=== PATIENT | male | born 1975 | race African-American/Black ===

== ENCOUNTER 2025-04-21 08:11 | Observation (INO) | payer OTHER, MEDICAID, SELFPAY ==
[2025-04-21] VITALS (9 sets, daily range): BP systolic 92–122; BP diastolic 62–95; PULSE 103–115; RESP 16–29; TEMP 36.7; O2SAT 97–98; BMI 29.7
--- NOTE | ~2025-04-21 | XR_ITS ---
XR hip RT min 2V 04/23/2025 14:44 Indication: Right hip pain Procedure: 2 views right hip Comparison: No prior studies for comparison. Findings: Mild osteoarthritis of the right hip. No fracture, subluxation or dislocation. No significant soft tissue abnormality. No foreign bodies. Impression: 1: Mild osteoarthritis of the right hip. Reviewed, dictated and finalized at location O. ARGE SUPERVISOR Impression: 1: Mild osteoarthritis of the right hip.
--- NOTE | ~2025-04-21 | CT_ITS ---
CT abdomen pelvis w con Clinical History: RUQ abd pain, PMH OF CIRRHOSIS . Comparison: None Technique: Axial images lung bases to symphysis pubis IV contrast information not listed in PACS Coronal, sagittal reformats CT images acquired with automatic exposure control for dose reduction DLP: 820 mGy-cm Findings: Lung bases: Clear. Visualized heart and pericardium: Unremarkable. Liver: Enlarged. Steatosis. Gallbladder: Unremarkable. Spleen: Unremarkable. Pancreas: Unremarkable. Adrenal glands: Unremarkable. Kidneys: Right kidney- No hydronephrosis. No renal stones. Subtle cortical heterogeneous enhancement. Perinephric stranding. Left kidney- No hydronephrosis. No renal stones. Distal esophagus/stomach: Unremarkable. Small bowel loops: Normal caliber and wall thickness. Colon: A few diverticula. Normal caliber and wall thickness. Normal RLQ appendix. Nodes: No enlarged nodes. Peritoneum: No ascites. No free air. Urinary bladder: Unremarkable. Prostate: Unremarkable. Bones: No acute bony abnormality. Soft tissues: Unremarkable. Aorta: No aneurysm or dissection. IVC: Unremarkable. Main portal vein/SMV/splenic vein: Patent. IMPRESSION: 1. Right kidney recently passed stone and/or pyelonephritis. Reviewed, dictated and finalized at location R. [employer] ASSEM[employer] INSPECTOR
--- OUTSIDE RECORDS SUMMARY | 2025-04-21 10:09 | XMS_ITS | Clinical Summary ---
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 Name Role Phone Referral, Self Primary Care Provider Unavailabl e Allergies No known active allergies Medications albuterol HFA (PROVENTIL HFA,VENTOLIN HFA,PROAIR HFA) 90 mcg/actuation inhaler Inhale 2 puffs every 6 (six) hours as needed for wheezing 1 each 3 5 Active allopurinoL (ZYLOPRIM) 100 mg tablet Take 1 tablet (100 mg total) by mouth daily 30 tablet 5 5 Active bictegravir-emt ricitabine-teno fovir (Biktarvy) 50-200-25 mg tablet Take 1 tablet by mouth daily 30 tablet 2 5 Active cetirizine (ZyrTEC) 10 mg tablet Take 1 tablet (10 mg total) by mouth daily 30 tablet 5 5 Active gabapentin (NEURONTIN) 100 mg capsule Take 1 capsule (100 mg total) by mouth 2 (two) times a day 60 capsule 5 5 Active atorvastatin (LIPITOR) 20 mg tablet Take 1 tablet (20 mg total) by mouth daily 30 tablet 2 5 Active ketorolac (TORADOL) 10 mg tablet Take 1 tablet (10 mg total) by mouth every 6 (six) hours as needed for pain 20 tablet 5 Active cyclobenzaprine (FLEXERIL) 10 mg tablet Take 1 tablet (10 mg total) by mouth 2 (two) times a day as needed for muscle spasms 20 tablet 5 Active meloxicam (MOBIC) 7.5 mg tablet Take 1 tablet (7.5 mg total) by mouth 2 (two) times a day 60 tablet 5 5 04/13/20 25 Discontinu ed(Therapy completed) Active Problems Problem Noted Date Diagnosed Date History of prostatitis 09/24/2024 Assessment & Plan (09/24/2024 2:43 PM CDT): - Reports a milky fluid from penis with bowel movements. No pain with urination or bowel movement. States he previously was diagnosed with prostatitis requiring admission. - No pain or urinary symptoms consistent with acute prostatitis but will do urinalysis w/ reflex to micro and culture for evaluation. If culture negative will discuss referral to urology for evaluation. If positive will discuss treating for UTI vs prostatitis. Numbness of fingers 08/19/2024 Assessment & Plan (08/19/2024 12:18 PM CDT): - Since starting new job, likely due to overuse. - Will evaluate renal function and if normal will rx NSAIDs x 1-2 weeks and reassess for improvement Routine screening for STI (sexually transmitted infection) 08/19/2024 Assessment & Plan (08/19/2024 12:19 PM CDT): - Reports not being sexually active at this time. Triple screen for GC/chlamydia sent today - He also reports a hx of syphilis, last treated 1 year ago. RPR drawn today. If reactive will need to get previous RPRs to trend Abnormal immunological findi ngs in specimens from other organs, systems and tissues 06/25/2018 Dysplasia of anus 10/28/2013 History of hepatitis C s/p treatment 10/02/2007 Assessment & Plan (09/24/2024 2:41 PM CDT): - HCV RNA negative 08/19/24 - Plan to repeat HCV RNA annually to screen for reinfection Assessment & Plan (08/19/2024 12:18 PM CDT): - Reports treatment in [place]. Release of information sent for records of treatment Human immunodeficiency virus (HIV) infection Overview (08/08/2017): Annotation: 04/2013 genotype: L10V, I13I/V, M36I, L63S Assessment & Plan (09/24/2024 2:43 PM CDT): - Currently on Biktarvy and reports tolerating well with viral load of 25. CD4 871 (40%) - Continue Biktarvy daily - Needs Hep B vaccination. First dose today Assessment & Plan (08/19/2024 12:18 PM CDT): - Currently on Biktarvy and reports tolerating well. No records available but states his viral load has been undetectable for several years - Refill Biktarvy today - New patient labs today - I have requested medical records regarding his other comorbidities and medications Resolved Problems Problem Noted Date Diagnosed Date Resolved Date Chlamydia 03/18/2013 08/19/2024 Syphilis, unspecified 03/18/20132024 Encounters Date Type Department Care Team Description 04/13/2025 8:19 PM SMALL ARMS ARTILLERY REPAIRER - 04/13/2025 9:08 PM SMALL ARMS ARTILLERY REPAIRER Emergency [facility] Emergency Department [id number] [place] [address] Lumbar radiculopathy (Primary Dx) Discharge Disposition: Discharge to home or self care 03/[facility] [address] [place] [address] [phone] Mellisa Rivera RMA 02/18/2025 Documentation [facility] [address] [place] [address] [phone] Bisi Villagran BSW Case Conference 02/18/2025 [facility] [address] [place] [address] [phone] Bisi Villagran BSW 02/12/2025 [facility] [address] [place] [address] [phone] Kylie Weiner RN from Last 3 Months Immunizations Immunization Administration Dates Next Due H1N1 Inj 04/26/2009 Hep A / Hep B 11/20/2018 Hep B Vaccine 12/30/2007,05/21/2006 Heplisav-b (Hepatitis B) 09/23/2024 Influenza, Quadrivalent, Spl it, Intramuscular 04/28/2018 Influenza, Trivalent, IM (MDV) 02/11/2013 Influenza, Trivalent, Preser vative Free, Intramuscular 01/25/2009,03/25/2007 Influenza, Unspecified 02/04/2024 PPD TEST 10/05/2008,09/30/2007,09/19/2006 Pneumococcal Polysaccharide PPV23 02/11/2013, Tdap 02/20/2021 Surgical History Surgery Date Site/Laterality Comments HERNIA REPAIR Medical History Medical History Date Comments Human immunodeficiency virus (HIV) disease (HCC) HIV disease - (Added by AGUSTÍN pererav) Family History Medical History Relation Name Comments Schizophrenia Brother Diabetes Mother Relation Name Status Comments Brother Mother Social History Tobacco Use Types Packs/Day Years Used Date Smoking Tobacco: Every Day Cigarettes 0.6 34 Started: 1991 Tobacco Cessation:Ready to Q uit: Not Asked; Counseling Given: Not Answered Personal Safety Answer Date Recorded Have you ever been in or are you currently in a harmful physical or emotional relationship or is someone making you feel afraid or unsafe? Denies 04/13/2025 Sex and Gender Information Value Date Recorded Sex Assigned at Male 08/19/2024 10:25 AM CDT Legal Sex Male 11:04 PM SMALL ARMS ARTILLERY REPAIRER Gender Identity Male 08/19/2024 10:25 AM CDT Sexual Orientation [place] 08/19/2024 10 :25 AM CDT Last Filed Vital Signs Vital Sign Reading Time Taken Comments Blood Pressure 149/94 04/13/2025 9:05 PM SMALL ARMS ARTILLERY REPAIRER Pulse 94 04/13/2025 9:05 PM SMALL ARMS ARTILLERY REPAIRER Temperature 36.6 C (97.8 F) 04/13/2025 6:32 PM SMALL ARMS ARTILLERY REPAIRER Respiratory Rate 16 04/13/2025 6:32 PM SMALL ARMS ARTILLERY REPAIRER Oxygen Saturation 99% 04/13/2025 9:05 PM SMALL ARMS ARTILLERY REPAIRER Inhaled Oxygen Concentration - - Weight 98.4 kg (217 lb) 04/13/2025 6:32 PM SMALL ARMS ARTILLERY REPAIRER Height 180.3 cm (5' 11) 04/13/2025 6:32 PM SMALL ARMS ARTILLERY REPAIRER Body Mass Index 30.27 04/13/2025 6:32 PM SMALL ARMS ARTILLERY REPAIRER Plan of Treatment Health Maintenance Due Date Last Done Comments Colon Cancer Screening-Colonoscopy 1975 Depression Screening 1975 HLA B 5701 Typing 1975 Prostate Cancer Screening-PSA 1975 G6PD 11/20/1993 Regular Well Visit/Exam 18-64 11/20/1993 Zoster Vaccine (1 of 2) 11/20/1994 Hepatitis A Vaccines (2 of 3 - Hep A Twinrix risk 3-dose series) 12/18/2018 11/20/2018 Influenza Vaccine (#1) 2024 , 04/28/2018, 02/11/2013, Additional history exists Hemoglobin A1C 08/19/2025 08/19/2024 RPR Screening 08/19/2025 08/19/2024 T Spot (quantiferon gold) 08/19/2025 08/19/2024 HIV+ Chlamydia and Gonorrhea Screening (Throat) 08/20/2025 08/20/2024 Hepatitis C Screening 09/23/2025 09/23/2024 , 08/19/2024, 08/19/2024, Additional history exists Proteinuria screening Urinalysis (UA) 09/23/2025 09/23/2024, 09/23/2024, 08/19/2024, Additional history exists HIV + Chlamydia and Gonorrhe a Screening (Urine) 09/24/2025 09/24/2024 HIV+ Chlamydia and Gonorrhea Screening (Rectal) 09/24/2025 09/24/2024 Lipid Panel 04/13/2026 04/13/2025, 08/19/2024 DTaP/Tdap/Td Vaccine (2 - Td or Tdap) 02/20/2031 02/20/2021 Hepatitis B Vaccines Completed 01/19/2025, 09/23/2024, 11/20/2018, Additional history exists Pneumococcal vaccine <65 Completed 025, 02/11/2013, 03/25/2007 Procedures Procedure Name Priority Date/Time Associated Diagnosis Comments XR HIP RIGHT 2 OR 3 VIEWS ED 04/13/2025 6:59 PM SMALL ARMS ARTILLERY REPAIRER XR SPINE LUMBAR 2 OR 3 VIEWS ED 04/13/2025 6:59 PM SMALL ARMS ARTILLERY REPAIRER URINALYSIS AND REFLEX TO MICROSCOPIC AND CULTURE Routine 09/23/2024 11:07 AM CDT HIV infection, unspecified symptom status (HCC) HEMOGLOBIN A1C Routine 08/19/2024 11:27 AM CDT HIV positive (HCC) LIPID PANEL Routine 08/19/2024 11:27 AM CDT HIV positive (HCC) T-SPOT.TB Routine 08/19/2024 11:27 AM CDT HIV positive (HCC) HEPATITIS C RNA, QUANTITATIVE, PCR Routine 08/19/2024 11:21 AM CDT HIV positive (HCC) RPR Routine 08/19/2024 11:21 AM CDT HIV positive (HCC) from Last 3 Months or Most Recently Relevant to Health Maintenance Results * XR Hip Right 2 or 3 Views (04/13/2025 6:59 PM SMALL ARMS ARTILLERY REPAIRER) Anatomical Region Laterality Modality Lower Extremities, Hip, Pelvis Right C omputed Radiography 04/14/2025 6:24 AM SMALL ARMS ARTILLERY REPAIRER Impressions 04/14/2025 6:24 AM SMALL ARMS ARTILLERY REPAIRER 1. Mild lower lumbar facet osteoarthritis 2. Suggestion of right hip gluteal calcific tendinitis Electronically signed by: Hugo Beavers MD, PHD Narrative 04/14/2025 6:24 AM SMALL ARMS ARTILLERY REPAIRER EXAMINATION: Lumbar spine 2 or 3 views; right hip 2 or 3 views HISTORY: Lower back and right hip pain FINDINGS: 3 radiographs the lumbar spine are submitted without comparison. The alignment is normal in neutral position without listhesis. The disc spaces and vertebral body heights appear normal. Mild lower lumbar facet osteoarthritis present. There is no spondylolysis. 2 view examination right hip demonstrates normal alignment and no acute fracture. The right hip joint space is normal. There is heterotopic calcification/ossification at the greater trochanter. Procedure Note Hugo Beavers MD PhD - 04/14/2025 EXAMINATION: Lumbar spine 2 or 3 views; right hip 2 or 3 views HISTORY: Lower back and right hip pain FINDINGS: 3 radiographs the lumbar spine are submitted without comparison. The alignment is normal in neutral position without listhesis. The disc spaces and vertebral body heights appear normal. Mild lower lumbar facet osteoarthritis present. There is no spondylolysis. 2 view examination right hip demonstrates normal alignment and no acute fracture. The right hip joint space is normal. There is heterotopic calcification/ossification at the greater trochanter. IMPRESSION: 1. Mild lower lumbar facet osteoarthritis 2. Suggestion of right hip gluteal calcific tendinitis Electronically signed by: Hugo Beavers MD, PHD us Jony Peterson MD IMG XR PROCEDURES Final Re sult * XR Spine Lumbar 2 or 3 Views (04/13/2025 6:59 PM SMALL ARMS ARTILLERY REPAIRER) Anatomical Region Laterality Modality Spine N/A Computed Radiogr aphy 04/14/2025 6:24 AM SMALL ARMS ARTILLERY REPAIRER Impressions 04/14/2025 6:24 AM SMALL ARMS ARTILLERY REPAIRER 1. Mild lower lumbar facet osteoarthritis 2. Suggestion of right hip gluteal calcific tendinitis Electronically signed by: Hugo Beavers MD, PHD Narrative 04/14/2025 6:24 AM SMALL ARMS ARTILLERY REPAIRER EXAMINATION: Lumbar spine 2 or 3 views; right hip 2 or 3 views HISTORY: Lower back and right hip pain FINDINGS: 3 radiographs the lumbar spine are submitted without comparison. The alignment is normal in neutral position without listhesis. The disc spaces and vertebral body heights appear normal. Mild lower lumbar facet osteoarthritis present. There is no spondylolysis. 2 view examination right hip demonstrates normal alignment and no acute fracture. The right hip joint space is normal. There is heterotopic calcification/ossification at the greater trochanter. Procedure Note Hugo Beavers MD PhD - 04/14/2025 EXAMINATION: Lumbar spine 2 or 3 views; right hip 2 or 3 views HISTORY: Lower back and right hip pain FINDINGS: 3 radiographs the lumbar spine are submitted without comparison. The alignment is normal in neutral position without listhesis. The disc spaces and vertebral body heights appear normal. Mild lower lumbar facet osteoarthritis present. There is no spondylolysis. 2 view examination right hip demonstrates normal alignment and no acute fracture. The right hip joint space is normal. There is heterotopic calcification/ossification at the greater trochanter. IMPRESSION: 1. Mild lower lumbar facet osteoarthritis 2. Suggestion of right hip gluteal calcific tendinitis Electronically signed by: Hugo Beavers MD, PHD Jony Peterson MD IMG XR PROCEDURES Final Re sult * (ABNORMAL) Urinalysis reflex to microscopic and culture Urine (09/23/2024 11:07 AM CDT) Color, ur Straw Yellow Clarity, ur Clear Clear [facility] Specific gravity, ur 1.005 1.003 - 1.030 [facility] pH, urine 6.5 [facility] Comment: Interpretive Data U rine pH is affected by diet, medications, systemic acid-base disturbances, and renal tubular function. pH may affect urinary stone formation. For example, urine pH below 6.0 may help reduce the tendency for calcium phosphate stones and pH greater than 6.0 may reduce the tendency for uric acid stone formation. Source: [facility] [employer] Current Interpretive Data was last revised on 2017 Protein, ur ql Negative Negative [facility] Glucose, ur ql Negative Negative [facility] Ketones, ur Negative Negative [facility] Bilirubin, ur Negative Negative [facility] Blood, ur Negative Negative [facility] Urobilinogen, ur <2.0 <2.0 mg/dL [facility] Nitrite, ur Negative Negative [facility] Leukocyte esterase, ur 3+(A) Negative [facility] UA reflex comment Reflex to microscopic UA will be performed. [facility] Urine 09/23/2024 11:0 7 AM CDT 09/23/2024 2:33 PM CDT Savanna Yi NP LAB MICROBIOLOGY - GENERA L ORDERABLES Final Result [facility] Department [place] [address] * T-SPOT.TB Blood (08/19/2024 11:27 AM CDT) [facility] T-SPOT.TB Negative [facility] Comment: Normal Value: Negative A negative test result does not exclude the possibility of exposure to or infection with Mycobacterium tuberculosis (M. tuberculosis). Patients with recent exposure to TB infected individuals exhibiting a negative T-SPOT.TB result should be considered for retesting within 6 weeks or if other relevant clinical symptoms indicate. Results from T-SPOT.TB testing must be used in conjunction with each individual's epidemiological history, current medical status, and results of other diagnostic evaluations. The T-SPOT.TB test is qualitative and results are reported as positive, borderline or negative, given that the test controls perform as expected. In line with the Centers for Disease Control and Prevention's 2010 recommendation to report quantitative measurements alongside the qualitative result, the laboratory provides spot counts for informational purposes only. The T-SPOT.TB test should not be interpreted as a quantitative test. T-SPOT.TB Panel A Spot Count 0 [facility] T-SPOT.TB Panel B Spot Count 1 [facility] T-SPOT.TB Negative Control Passed [facility] T-SPOT.TB Positive Control Passed [facility] Comment: Test Performed at: [facility] [address] [place] [id number] SHAYY OROZCO,PHD Blood 08/19/2024 11:2 7 AM CDT 08/19/2024 3:28 PM CDT Savanna Yi NP LAB MICROBIOLOGY - GENERA L ORDERABLES Final Result [facility] Department [place] [address] * (ABNORMAL) Hemoglobin A1c (08/19/2024 11:27 AM CDT) [facility] Hgb A1C 6.5(H) 4.0 - 5.6 % Estimated Average Glucose 140 mg/dL [facility] Comment: The ADA recommends reporting an estimated Average Glucose (eAG) with all Hemoglobin A1c results using the equation derived from a study of 507 normal and diabetic adults. Minority populations were underrepresented and children were not included. (Diabetes Care 2020; 43(S1): S69-S76). The eAG is not equivalent to a fasting glucose. Blood 08/19/2024 11:2 7 AM CDT 08/19/2024 2:51 PM CDT us Savanna Yi BLOCKER [employer] LAB BLOOD ORDERABLES Yamilka garcias Result [facility] Department [place] [address] * (ABNORMAL) Lipid panel (08/19/2024 11:27 AM CDT) Cholesterol 147 30 - 199 mg/dL Comment: Interpretive Data Ages < or = 19 years Acceptable: <170 mg/dL Borderline high: 170-199 mg/dL High: >or= 200 mg/dL Ages > or = 20 years Desirable: <200 mg/dL Borderline high: 200-239 mg/dL High: >or= 240 mg/dL Literature References: 1. Expert Panel on Integrated Guidelines for Cardiovascular Health and Risk Reduction in Children and Adolescents. Pediatrics 2011;128:S213 2. NCEP Expert Panel. Circulation 2004;110:227 Current Interpretive Data was last revised on 2017. Triglycerides 194(H) <=149 mg/dL [facility] Comment: Interpretive Data Ages < or = 9 years Acceptable: <75 mg/dL Borderline high: 75-99 mg/dL High: >or= 100 mg/dL Ages 10 to 20 years Acceptable: <90 mg/dL Borderline high: 90-129 mg/dL High: >or= 130 mg/dL Ages > or = 20 years Desirable: <150 mg/dL Borderline high: 150-199 mg/dL High: 200-499 mg/dL Very high: >or= 499 mg/dL Literature References: 1. Expert Panel on Integrated Guidelines for Cardiovascular Health and Risk Reduction in Children and Adolescents. Pediatrics 2011;128:S213 2. NCEP Expert Panel. Circulation 2004;110:227 Current Interpretive Data was last revised on 2017. HDL 43 >=40 mg/dL [facility] Comment: Interpretive Data Ages < or = 19 years Acceptable: >45 mg/dL Borderline low: 40-45 mg/dL Low: <40 mg/dL Ages > or = 20 years Desirable: >or= 60 mg/dL Low: <40 mg/dL Literature References: 1. Expert Panel on Integrated Guidelines for Cardiovascular Health and Risk Reduction in Children and Adolescents. Pediatrics 2011;128:S213 2. NCEP Expert Panel. Circulation 2004;110:227 Current Interpretive Data was last revised on 2017. LDL, calculated 72 <=129 mg/dL [facility] Comment: Interpretive Data Ages < or = 19 years Acceptable: <110 mg/dL Borderline high: 110-129 mg/dL High: >or= 130 mg/dL Ages > or = 20 years Optimal: <100 mg/dL Near optimal: 100-129 mg/dL Borderline high: 130-159 mg/dL High: >160 mg/dL Calculated using the Maurizio LDL-C estimating equation. This equation was implemented on 2023. Prior to this date LDL-C was estimated using the Friedewald equation. Literature References: 1. Expert Panel on Integrated Guidelines for Cardiovascular Health and Risk Reduction in Children and Adolescents. Pediatrics 2011;128:S213 2. NCEP Expert Panel. Circulation 2004;110:227 3. Maurizio Bravo et al. YUAN Cardiol. 2019August 27;5(5):540-548. doi: 10.1001/[email or web address] Current Interpretive Data was last revised on 2023. Non-HDL Cholesterol 104 mg/dL [facility] Comment: Interpretive Data Ages < or = 19 years Acceptable: <120 mg/dL Borderline high: 120-144 mg/dL High: >145 mg/dL Ages > or = 20 years When triglycerides are >200 mg/dL, Non-HDL cholesterol is a secondary target of therapy with treatment goals that are 30 mg/dL greater than the LDL cholesterol target. Literature References: 1. Expert Panel on Integrated Guidelines for Cardiovascular Health and Risk Reduction in Children and Adolescents. Pediatrics 2011;128:S213 2. NCEP Expert Panel. Circulation 2004;110:227 Current Interpretive Data was last revised on 2017. Chol/HDL ratio 3 [facility] Blood 08/19/2024 11:2 7 AM CDT 08/19/2024 2:51 PM CDT Savanna Yi BLOCK[employer] LAB BLOOD ORDERABLES Yamilka l Result Performing Organization Address City/[facility]/ZIP Co de Phone Number [facility] Department [place] [address] * Hepatitis C (HCV) RNA PCR, quantitative Blood (08/19/2024 11:21 AM CDT) [facility] HCV RNA result Not Detected [facility] Comment: The quantifiable range of this assay is 15 IU/mL to 100,000,000 IU/mL (1.18 log IU/mL to 8.00 log IU/mL). Testing was performed by the DANNI 6800 HCV Test ([employer] Testing performed at [facility] Current Interpretive Data was last revised on 2020 Blood 08/19/2024 11:2 1 AM CDT 08/19/2024 3:13 PM CDT Savanna Yi NP LAB MICROBIOLOGY - GENERA L ORDERABLES Final Result Performing Organization Address [facility] Co de Phone Number [facility] Department [place] [address] [facility] * (ABNORMAL) RPR Blood (08/19/2024 11:21 AM CDT) [facility] RPR Reactive(A ) Nonreactive Blood 08/19/2024 11:2 1 AM CDT 08/19/2024 3:16 PM CDT Savanna Yi BLOCK[employer] LAB MICROBIOLOGY - GENERA L ORDERABLES Final Result Performing Organization Address City/[facility] Co de Phone Number [facility] [place] [address] from Last 3 Months or Most Recently Relevant to Health Maintenance Insurance [employer] Care Teams Band Sawing Machine Operator Relationship Specialty Start Date End Date Referral, Self PCP - General 08/19/24 Jennifer Murphy Fitter Welder Infectious Diseases 07/30/24
--- OUTSIDE RECORDS SUMMARY | 2025-04-21 10:09 | XMS_ITS | Encounter Summary ---
Author Organization [facility] Address [facility] [address] Care Team Providers Care Category Specialist Name Role Phone Corey Strauss MD Primary Care Provider Savanna Nash PharmD Unavailable [phone] Lc Roth MD Unavailable [phone] Reason for Visit * Reason Comments Refill Request Encounter Details Date Type Department Care Team (Late st Contact Info) Description 04/14/2025 Orders Only [facility] - Internal Medicine [address] [place] [phone] Lc Roth MD [address] [facility] INTERNAL MEDICINE DEPT [place], [place] [id number] Human immunodeficiency virus (HIV) disease (HCC) Social History Tobacco Use Types Packs/Day Years Used Date Smoking Tobacco: Every Day Cigarettes 0.5 35 Smokeless Tobacco: Never Alcohol Use Standard Drinks/Week Comments Yes 12 (1 standard drink = 0.6 oz pu re alcohol) PHQ-2 Answer Date Recorded Patient Health Questionnaire-2 Score 0 04/13/2025 Sex and Gender Information Value Date Recorded Sex Assigned at Male 01/19/2025 1:41 PM CDT Legal Sex Male 1:41 PM CDT Gender Identity Male 01/19/2025 1:41 PM CDT Sexual Orientation Not on file 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 Savanna Nash PharmD 04/14/2025 12:00 PM NOSTICS TECH documented in this encounter Plan of Treatment Upcoming Encounters Date Type Department Care Team (Late st Contact Info) Description 05/05/2025 8:30 AM DIAGNOSTICS TECH Appointment [facility] - Internal Medicine [address] [place] [phone] Lc Roth MD [address] [place] [address] INTERNAL MEDICINE DEPT [place], [place] [phone] 05/05/2025 9:30 AM DIAGNOSTICS TECH Appointment Internal Medicine Clinic at [address] [address] Ike Roland MD [address] [place] [phone] documented as of this encounter Visit Diagnoses Diagnosis Human immunodeficiency virus (HIV) disease (HCC)- Primary Human immunodeficiency virus [HIV] disease documented in this encounter Care Teams Category Specialist Relationship Specialty Start Date End Date Corey Strauss MD [address] [place] [phone] PCP - General Student Resident 01/19/25 Savanna Nash, PharmD [address] [place] [phone] Pharmacist Pharmacist 01/19/25 Lc Roth MD [address] [facility] [place] [address] Infectious Disease 01/19/25 documented as of this encounter
--- OUTSIDE RECORDS SUMMARY | 2025-04-21 10:09 | XMS_ITS | Data Portability ---
Author Organization [place] [facility] [place] Blanc Address [address] [place] [address] Care Team Providers Care Metal Burnisher Name Role Phone LE TELLES Primary Care Provider Assessment Encounter Date Assessment Date Assessment LastModified by Organization Details LastModified Time 12/18/2019 12/18/2019 Risk Counseling: Today's instructions / counseling includes use of condoms with all sex acts. Treatment Adherence Counseling: Today's instructions / counseling includes keeping medical appointments. Not available 12/18/2019 16:07:13 03/23/2020 03/23/2020 Risk Counseling: Today's instructions / counseling includes use of condoms with all sex acts. Treatment Adherence Counseling: Today's instructions / counseling includes keeping medical appointments. Not available 03/23/2020 10:15:45 05/12/2020 05/12/2020 Risk Counseling: Today's instructions / counseling includes use of condoms with all sex acts. Treatment Adherence Counseling: Today's instructions / counseling includes keeping medical appointments. Not available 05/12/2020 11:09:15 Plan of Treatment Reminders Order Date Submit Date Provider Last Modified By Organization Details Last Modified Time Details Appointments None recorded. Lab PSA, total, serum or plasma 2020 021 ysmootma Not available 14:13:03 CT + NG + TV, DNA, urine/swab 2020 021 ysmootma Not available 14:13:02 CBC w/ auto diff 2020 021 ysmootma Not available 14:13:02 CMP, serum or plasma 2020 021 ysmootma Not available 14:13:02 urinalysis complete, reflex culture 2020 021 ysmootma Not available 14:13:03 lipid panel, serum 2020 021 klovinsma [facility], [address], [address], [place], [address], 13:19:42 urinalysis , complete 2020 021 klovinsma [facility], [address], [address], [place], [address], 13:19:42 RPR (rapid plasma reagin), serum 2020 021 klovinsma [facility], [address], [address], [place], [address], 13:19:43 tb (M tuberculos is), ifn-gamma july, blood 2020 021 klovinsma [facility], [address], [address], [place], [address], 13:19:44 CT + NG + TV, DNA, urine/swab 2020 021 klovinsma [facility], [address], [address], [place], [address], 13:19:44 CMP, serum or plasma 2020 021 klovinsma [facility], [address], [address], [place], [address], 01/15/202 1 13:19:45 cd4 T-cells, blood 2020 021 klovinsma [facility], [address], [address], [place], [address], 1 13:19:46 HIV-1 RNA, quantitati ve, PCR, serum or plasma 2020 021 klovinsma [facility], [address], [address], [place], [address], 1 13:19:46 drug screen, urine 2020 021 klovinsma [facility], [address], [address], [place], [address], 1 13:19:47 HBsAg (hepatitis B surface Ag), serum 2020 021 klovinsma [facility], [address], [address], [place], [address], 1 13:19:48 lipid panel, serum 2019 020 GRACIELA [facility], [address], [address], [place], [address], 0 20:08:33 urinalysis , complete 2019 020 [facility], [address], [address], [place], [address], 0 16:37:16 RPR (rapid plasma reagin), serum 2019 020 GRACIELA [facility], [address], [address], [place], [address], 0 20:08:35 tb (M tuberculos is), ifn-gamma july, blood 2019 020 GRACIELA [facility], [address], [address], [place], [address], 0 20:08:34 CT + NG + TV, DNA, urine/swab 2019 020 vin [facility], [address] [facility] [address], [place], [address], 0 16:37:16 CMP, serum or plasma 2019 020 GRACIELA [facility], [address], [place], [address], 0 20:08:33 cd4 T-cells, blood 2019 020 GRACIELA [facility], [address] [place], [place] [address], [address], [place], [address], 0 20:08:32 HIV-1 RNA, quantitati ve, PCR, serum or plasma 2019 020 GRACIELA [facility], [address], [address], [place], [address], 0 20:08:34 drug screen, urine 2019 020 [place] [address] [facility], [address] [address] [address], [place], [address], 0 16:37:16 hepatitis C Ab, signal-to- cutoff, serum or plasma 2019 020 GRACIELA [facility], [address], [address], [place], [address], 0 20:08:36 HBsAg (hepatitis B surface Ag), serum 2019 020 [facility], [address] [facility], [address], [place], [address], 0 16:37:16 Referral None recorded. Procedures None recorded. Surgeries None recorded. Imaging XR, shoulder 2018 019 ATHENAFAX [facility] [address] [place], [address], 9 17:00:28 Medication Orders Cipro 500 mg tablet 2020 021 INTERFACE [facility], [address] [place] [address], [address], 1 11:28:05 Bactrim DS 800 mg-160 mg tablet 2018 019 klovinsma [facility], [address] [place] [address], [address], 1 10:53:13 mupirocin 2 % topical ointment 2018 019 ysmootma [facility], [address] [place] [address], [address], 1 10:46:22 Patient TargetsNo targets recorded. Patient Instructions Encounter Date Encounter Id Patient Instructions Last Modified By Organization Details Last Modified Time 12/18/2019 [id number] Quitting Tobacco : Care Instructions Not available 12/18/2019 16:09:46 Continue taking your HIV medication as prescribed. Also, please use condoms with all sex acts. Not available 12/18/2019 16:19:48 05/12/2020 [id number] Quitting Tobacco : Care Instructions Not available 05/12/2020 11:12:46 Continue taking your HIV medication as prescribed. Also, please use condoms with all sex acts. Not available 05/12/2020 11:59:10 Reason for Referral None Reported. Results Created Date Observation Date Name Description Value Unit Range Abnormal Flag Note LastModifiedBy Organization Detail LastModifiedTime 01/25/20 20 01/26/2020 cd4 T-efraín ls, blood absolute cd 4 helper 1177 /uL 359-15 19 Not Available [facility] ([facility]) [address] [facility], [place], [address], 01/28/2020 20:08:32 01/25/20 20 01/26/2020 cd4 T-efraín ls, blood % cd 4 pos. lymph. 40.6 % 30.8-5 8.5 Not Available [facility] ([facility]) [address] [facility], [place], [address], 01/28/2020 20:08:32 01/25/20 20 01/26/2020 cd4 T-efraín ls, blood WBC 6.5 x10e3 /uL 3.4-10 .8 Not Available [facility] ([facility]) [address] [facility], [place], [address], 01/28/2020 20:08:32 01/25/20 20 01/26/2020 cd4 T-efraín ls, blood RBC 4.67 x10e6 /uL 4.14-5 .80 Not Available [facility] ([facility]) [address] [facility], [place], [address], 01/28/2020 20:08:32 01/25/20 20 01/26/2020 cd4 T-efraín ls, blood hemoglobin 14.0 g/dL 13.0-1 7.7 Not Available [facility] ([facility]) [address] [facility], [place], [address], 01/28/2020 20:08:32 01/25/20 20 01/26/2020 cd4 T-efraín ls, blood hematocrit 41.2 % 37.5-5 1.0 Not Available [facility] ([facility]) [address] [facility], [place], [address], 01/28/2020 20:08:32 01/25/20 20 01/26/2020 cd4 T-efraín ls, blood MCV 88 fL 79-97 Not Available [facility] ([facility]) [address] [facility], [place], [address], 01/28/2020 20:08:32 01/25/20 20 01/26/2020 cd4 T-efraín ls, blood MCH 30.0 pg 26.6-3 3.0 Not Available [facility] ([facility]) [address] [facility], [place], [address], 01/28/2020 20:08:32 01/25/20 20 01/26/2020 cd4 T-efraín ls, blood MCHC 34.0 g/dL 31.5-3 5.7 Not Available [facility] ([facility]) [address] [facility], [place], [address], 01/28/2020 20:08:32 01/25/20 20 01/26/2020 cd4 T-efraín ls, blood RDW 13.2 % 11.6-1 5.4 Not Available [facility] ([facility]) [address] [facility], [place], [address], 01/28/2020 20:08:32 01/25/20 20 01/26/2020 cd4 T-efraín ls, blood platelets 326 x10e3 /uL 150-45 0 Not Available [facility] ([facility]) [address] [facility], [place], [address], 01/28/2020 20:08:32 01/25/20 20 01/26/2020 cd4 T-efraín ls, blood neutrophils 39 % not estab. Not Available [facility] ([facility]) [address] [facility], [place], [address], 01/28/2020 20:08:32 01/25/20 20 01/26/2020 cd4 T-efraín ls, blood lymphs 45 % not estab. Not Available [facility] ([facility]) [address] [facility], [place], [address], 01/28/2020 20:08:32 01/25/20 20 01/26/2020 cd4 T-efraín ls, blood monocytes 13 % not estab. Not Available [facility] ([facility]) [address] [place], [address], 01/28/2020 20:08:32 01/25/20 20 01/26/2020 cd4 T-efraín ls, blood eos 2 % not estab. Not Available [facility] ([facility]) [address] [place], [address], 01/28/2020 20:08:32 01/25/20 20 01/26/2020 cd4 T-efraín ls, blood basos 0 % not estab. Not Available [facility] ([facility]) [address] [place], [address], 01/28/2020 20:08:32 01/25/20 20 01/26/2020 cd4 T-efraín ls, blood immature cells EMPLOYMENT SPECIALIST/PROGRAM MANAGER Not Available [facility] ([facility]) [address] [place], [address], 01/28/2020 20:08:32 01/25/20 20 01/26/2020 cd4 T-efraín ls, blood neutrophils (absolute) 2.5 x10e3 /uL 1.4-7. 0 Not Available [facility] ([facility]) [address] [place], [address], 01/28/2020 20:08:32 01/25/20 20 01/26/2020 cd4 T-efraín ls, blood lymphs (absolute) 2.9 x10e3 /uL 0.7-3. 1 Not Available [facility] ([facility]) [address] [place], [address], 01/28/2020 20:08:32 01/25/20 20 01/26/2020 cd4 T-efraín ls, blood monocytes(ab solute) 0.9 x10e3 /uL 0.1-0. 9 Not Available [facility] ([facility]) [address] [place], [address], 01/28/2020 20:08:32 01/25/20 20 01/26/2020 cd4 T-efraín ls, blood eos (absolute) 0.1 x10e3 /uL 0.0-0. 4 Not Available [facility] ([facility]) [address] [facility], [place], [address], 01/28/2020 20:08:32 01/25/20 20 01/26/2020 cd4 T-efraín ls, blood baso (absolute) 0.0 x10e3 /uL 0.0-0. 2 Not Available [facility] ([facility]) [address] [facility], [place], [address], 01/28/2020 20:08:32 01/25/20 20 01/26/2020 cd4 T-efraín ls, blood immature granulocytes 1 % not estab. Not Available [facility] ([facility]) [address] [facility], [place], [address], 01/28/2020 20:08:32 01/25/20 20 01/26/2020 cd4 T-efraín ls, blood immature grans (abs) 0.0 x10e3 /uL 0.0-0. 1 Not Available [facility] ([facility]) [address] [facility], [place], [address], 01/28/2020 20:08:32 01/25/20 20 01/26/2020 cd4 T-efraín ls, blood NRBC EMPLOYMENT SPECIALIST/PROGRAM MANAGER Not Available [facility] ([facility]) [address] [facility], [place], [address], 01/28/2020 20:08:32 01/25/20 20 01/26/2020 cd4 T-efraín ls, blood hematology comments: EMPLOYMENT SPECIALIST/PROGRAM MANAGER Not Available [facility] ([facility]) [address] [facility], [place], [address], 01/28/2020 20:08:32 01/25/20 20 01/26/2020 CMP, serum or plasm a glucose 136 mg/dL 65-99 above high normal Not Available [facility] ([facility]) [address] [facility], [place], [address], 01/28/2020 20:08:32 01/25/20 20 01/26/2020 CMP, serum or plasm a BUN 13 mg/dL 6-24 Not Available [facility] ([facility]) [address] [facility], [place], [address], 01/28/2020 20:08:32 01/25/20 20 01/26/2020 CMP, serum or plasm a creatinine 0.94 mg/dL 0.76-1 .27 Not Available [facility] ([facility]) [address] [facility], [place], [address], 01/28/2020 20:08:32 01/25/20 20 01/26/2020 CMP, serum or plasm a eGFR if nonafricn AM 98 mL/mi n/1.7 3 >59 Not Available [facility] ([facility]) [address] [facility], [place], [address], 01/28/2020 20:08:32 01/25/20 20 01/26/2020 CMP, serum or plasm a eGFR if africn AM 114 mL/mi n/1.7 3 >59 Not Available [facility] ([facility]) [address] [facility], [place], [address], 01/28/2020 20:08:32 01/25/20 20 01/26/2020 CMP, serum or plasm a BUN/creatini ne ratio 14 9-20 Not Available [facility] ([facility]) [address] [place], [address], 01/28/2020 20:08:32 01/25/20 20 01/26/2020 CMP, serum or plasm a sodium 141 mmol/ L 134-14 4 Not Available [facility] ([facility]) [address] [place], [address], 01/28/2020 20:08:32 01/25/20 20 01/26/2020 CMP, serum or plasm a potassium 4.4 mmol/ L 3.5-5. 2 Not Available [facility] ([facility]) [address] [place], [address], 01/28/2020 20:08:32 01/25/20 20 01/26/2020 CMP, serum or plasm a chloride 104 mmol/ L 96-106 Not Available [facility] ([facility]) [address] [place], [address], 01/28/2020 20:08:32 01/25/20 20 01/26/2020 CMP, serum or plasm a carbon dioxide, total 22 mmol/ L 20- Not Available [facility] ([facility]) [address] [place], [address], 01/28/2020 20:08:32 01/25/20 20 01/26/2020 CMP, serum or plasm a calcium 9.5 mg/dL 8.7-10 .2 Not Available [facility] ([facility]) [address] [place], [address], 01/28/2020 20:08:32 01/25/20 20 01/26/2020 CMP, serum or plasm a protein, total 7.9 g/dL 6.0-8. 5 Not Available [facility] ([facility]) [address] [place], [address], 01/28/2020 20:08:32 01/25/20 20 01/26/2020 CMP, serum or plasm a albumin 4.8 g/dL 4.0-5. 0 Not Available [facility] ([facility]) [address] [place], [address], 01/28/2020 20:08:32 01/25/20 20 01/26/2020 CMP, serum or plasm a globulin, total 3.1 g/dL 1.5-4. 5 Not Available [facility] ([facility]) [address] [place], [address], 01/28/2020 20:08:32 01/25/20 20 01/26/2020 CMP, serum or plasm a A/G ratio 1.5 1.2-2. 2 Not Available [facility] ([facility]) [address] [facility] [place], [address], 01/28/2020 20:08:32 01/25/20 20 01/26/2020 CMP, serum or plasm a bilirubin, total 0.4 mg/dL 0.0-1. 2 Not Available [facility] ([facility]) [address] [facility] [place], [address], 01/28/2020 20:08:32 01/25/20 20 01/26/2020 CMP, serum or plasm a alkaline phosphatase 78 IU/L 39-117 Not Available [facility] ([facility]) [address] [facility] [place], [address], 01/28/2020 20:08:32 01/25/20 20 01/26/2020 CMP, serum or plasm a AST (SGOT) 88 IU/L 0-40 above high normal Not Available [facility] ([facility]) [address] [facility] [place], [address], 01/28/2020 20:08:32 01/25/20 20 01/26/2020 CMP, serum or plasm a ALT (SGPT) 77 IU/L 0-44 above high normal Not Available [facility] ([facility]) [address] [facility] [place], [address], 01/28/2020 20:08:32 01/25/20 20 01/26/2020 lipid panel , serum cholesterol, total 164 mg/dL 100-19 9 Not Available [facility] ([facility]) [address] [facility] [place], [address], 01/28/2020 20:08:33 01/25/20 20 01/26/2020 lipid panel , serum triglyceride s 272 mg/dL 0-149 above high normal Not Available [facility] ([facility]) [address] [place], [address], 01/28/2020 20:08:33 01/25/20 20 01/26/2020 lipid panel , serum HDL cholesterol 30 mg/dL >39 below low normal Not Available [facility] ([facility]) [address] [facility] [place], [address], 01/28/2020 20:08:33 01/25/20 20 01/26/2020 lipid panel , serum VLDL cholesterol robert 46 mg/dL 5-40 above high normal Not Available [facility] ([facility]) [address] [facility] [place], [address], 01/28/2020 20:08:33 01/25/20 20 01/26/2020 lipid panel , serum LDL chol calc ([facility]) 88 mg/dL 0-99 Not Available [facility] ([facility]) [address] [place], [address], 01/28/2020 20:08:33 01/25/20 20 01/26/2020 lipid panel , serum comment: EMPLOYMENT SPECIALIST/PROGRAM MANAGER Not Available [facility] ([facility]) [address] [place], [address], 01/28/2020 20:08:33 01/25/20 20 01/26/2020 lipid panel , serum LDL/HDL ratio 2.9 ratio 0.0-3. 6 LDL/H DL Ratio Men Women 1/2 Avg.R isk 1.0 1.5 Avg.R isk 3.6 3.2 2X Avg.R isk 6.2 5.0 3X Avg.R isk 8.0 6.1 Not Available [facility] ([facility]) [address] [place], [address], 01/28/2020 20:08:33 01/25/20 20 01/27/2020 tb (M tuber culos is), ifn-g josué july , blood quantiferon incubation Incuba tion perfor med. Not Available [facility] ([facility]) [address] [place], [address], 01/28/2020 20:08:34 01/25/20 20 01/27/2020 tb (M tuber culos is), ifn-g josué july , blood quantiferon criteria Commen t The Quant iFERO N-TB Gold Plus resul t is deter mined by subtr actin g the Nil value from eithe r TB antig en (Ag) tube. The mitog en tube serve s as a contr ol for the test. Not Available [facility] ([facility]) [address] [facility] [address], [place], [address], 01/28/2020 20:08:34 01/25/20 20 01/28/2020 tb (M tuber culos is), ifn-g josué july , blood quantiferon TB1 Ag value 0.07 IU/mL Not Available [facility] ([facility]) [address] [place], [address], 01/28/2020 20:08:34 01/25/20 20 01/28/2020 tb (M tuber culos is), ifn-g josué july , blood quantiferon TB2 Ag value 0.11 IU/mL Not Available [facility] ([facility]) [address] [place], [address], 01/28/2020 20:08:34 01/25/20 20 01/28/2020 tb (M tuber culos is), ifn-g josué july , blood quantiferon nil value 0.07 IU/mL Not Available [facility] ([facility]) [address] [place], [address], 01/28/2020 20:08:34 01/25/20 20 01/28/2020 tb (M tuber culos is), ifn-g josué july , blood quantiferon mitogen value 0.03 IU/mL Not Available [facility] ([facility]) [address] [place], [address], 01/28/2020 20:08:34 01/25/20 20 01/28/2020 tb (M tuber culos is), ifn-g josué july , blood quantiferon- TB gold plus Indete rminat e negati ve abnormal Mitog en (posi tive contr ol) gave low respo nse. This may occur due to subop timal pre-a nalyt ical handl ing. Not Available [facility] ([facility]) [address] [place], [address], 01/28/2020 20:08:34 01/25/20 20 01/26/2020 HIV-1 RNA, quant itati ve, PCR, serum or plasm a HIV-1 RNA by PCR 24568 copie s/mL The repor table range for this assay is 20 to 10,00 0,000 copie s HIV-1 RNA/m L. Not Available [facility] ([facility]) [address] [place], [address], 01/28/2020 20:08:34 01/25/20 20 01/26/2020 HIV-1 RNA, quant itati ve, PCR, serum or plasm a log10 HIV-1 RNA 4.188 log10 copy/ mL Not Available [facility] ([facility]) [address] [place], [address], 01/28/2020 20:08:34 01/25/20 20 01/26/2020 RPR (rapi d plasm a reagi n), serum RPR Reacti ve non reacti ve abnormal Not Available [facility] ([facility]) [address] [place], [address], 01/28/2020 20:08:35 01/25/20 20 01/26/2020 RPR (rapi d plasm a reagi n), serum treponema pallidum antibodies Reacti ve non reacti ve abnormal Not Available [facility] ([facility]) [address] [place], [address], 01/28/2020 20:08:35 01/25/20 20 01/27/2020 RPR (rapi d plasm a reagi n), serum RPR, quant. 1:4 nonrea <1:1 above high normal Not Available [facility] ([facility]) [address] [facility], [place], [address], 01/28/2020 20:08:35 01/25/20 20 01/26/2020 hepat itis C Ab, signa l-to- cutof f, serum or plasm a hep C virus Ab 4.0 s/co_ ratio 0.0-0. 9 above high normal Negat melisa: < 0.8 Indet ermin ate: 0.8 - 0.9 Posit melisa: > 0.9 The CDC recom mends that a posit melisa HCV antib ira resul t be follo wed up with a HCV Nucle ic Acid Ampli ficat ion test (5507 13). Not Available [facility] ([facility]) [address] [facility], [place], [address], 01/28/2020 20:08:36 01/25/20 20 01/26/2020 HBsAg (hepa titis B surfa ce Ag), EIA, serum HBsAg screen Negati ve negati ve Not Available [facility] ([facility]) [address] [place], [address], 01/28/2020 20:08:36 Result Notes None recorded. Problems Name Problem SNOMED Code Status Onset Date Resolution Date Notes Provider Name and Address Organization Details Recorded Time Smokes tobacco daily 570375930 Active 2017 Daniel Salcedo PA-C Attn: Accountin g,[address] 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, [place], [address], [facility] 8 16:34:51 Human immunodef iciency virus infection 67133961 Active 2018 Daniel Salcedo PA-C Attn: [place],[address] [facility], [place], [address], [place] [facility] 9 16:23:33 History of syphilis 727632849799 9108 Active 07/2012: 1:512 Tx'd with Bicillin x 3 in 04/2013: 1:64 08/2015: 1:32 Tx'd with Bicillin x 1 08/2015: 1:4 03/2017: 1:4 Daniel Salcedo PA-C Attn: [place] az[place],[address] [facility], [place], [address], [place] [facility] 9 12:53:26 Interfero n gamma assay positive 465497521 Active 2018 Daniel Salcedo PA-C Attn: [place] az[place]edo,[address] [place], [address], [place] [facility] 9 16:34:06 History of hepatitis C 432529246960 01 Active 2018 Genotype 3 Tx'd with SOF + DCV (x 12 weeks) 2014 HCV RNA (03/2017) : Not detected Daniel Salcedo PA-C Attn: [place] azevedo,[address] [place], [address], [place] [facility] 9 10:52:13 Harmful pattern of use of cocaine 68370633 Active 2018 Daniel Salcedo PA-C Attn: [place],[address] [place], [address], [place] [facility] 9 12:42:56 Pain of right ankle joint 445170071366 Active 2018 Paul Toure MD [address] [place], [address], [place] [facility] 9 15:08:07 Closed fracture of lateral malleolus of right fibula 638777198316 Active 2018 Paul Toure MD [address] [place], [address], [place] [facility] 9 15:24:20 Problem Notes None recorded. Medical Equipment None Reported. Allergies No known drug allergies Medications Name Sig Start Date Stop Date Status Note LastModified by Organization Details LastModified Time cyclobenz aprine 10 mg tablet TAKE 1 TABLET BY MOUTH THREE TIMES DAILY NEEDED FOR PAIN active Not Available Not Available No t Available promethaz ine-DM 6.25 mg-15 mg/5 mL oral syrup TAKE 5ML BY MOUTH EVERY 6 HOURS NEEDED FOR COUGH active Not Available Not Available No t Available acetamino phen 325 mg tablet active Not Available Not Available No t Available clindamyc in HCl 300 mg capsule 1 cap TID until finished 09/25 completed Not Available Not Available Not Available hydrocodo ne 5 mg-acetam inophen 325 mg tablet 05/18 completed Not Available Not Available Not Available meloxicam 15 mg tablet 05/18 completed Not Available Not Available Not Available prednison e 20 mg tablet TAKE 1 TABLET BY MOUTH DAILY active Not Available Not Available No t Available ciproflox acin 500 mg tablet TAKE 1 TABLET BY MOUTH EVERY 12 HOURS DIRECTED FOR 10 DAYS. active Not Available Not Available No t Available sulfameth oxazole 800 mg-trimet hoprim 160 mg tablet TAKE 1 TABLET BY MOUTH EVERY 12 HOURS 05/12 completed Not Available Not Available Not Available mupirocin 2 % topical ointment APPLY A SMALL AMOUNT TO THE AFFECTED AREA BY TOPICAL ROUTE 3 TIMES PER DAY 05/18 completed Not Available Not Available Not Available ibuprofen 600 mg tablet TAKE 1 TABLET BY MOUTH EVERY 6 HOURS NEEDED FOR PAIN active Not Available Not Available No t Available levofloxa kaci 500 mg tablet 06/11 completed Not Available Not Available Not Available albuterol sulfate HFA 90 mcg/actua tion aerosol inhaler INHALE 2 PUFFS BY INHALATI ON ROUTE EVERY 4 HOURS NEEDED FOR SHORTNES S OF BREATH active Not Available Not Available No t Available Truvada 200 mg-300 mg tablet 1 tab PO QD 04/16 completed Switched to Biktarvy October 2018 (simplif ication) . JV Not Available Not Available Not Available Tivicay 50 mg tablet 1 tab PO QD 04/16 completed Switched to Biktarvy October 2018 (simplif ication) . JV Not Available Not Available Not Available Biktarvy 50 mg-200 mg-25 mg tablet active Not Available Not Available Not Available COVID-19 test specimen collectio n TEST DIRECTED active Not Available Not Available No t Available Vitals Date Recorded Body height Heart rate Systolic And Diastolic Provider Name and Address Organization Details Last Updated DateTime 05/12/2020 180.34 cm 119 /min 112/85 mm[Hg] Amena Alayna [facility] 05/12/2020 10:54:55 Date Recorded Body height Provider Name an d Address Organization Details Last Updated DateTime 05/18/2020 180.34 cm Dana Roman MA [facility] 021 10:45:43 Date Recorded Body height Provider Name an d Address Organization Details Last Updated DateTime 12/18/2019 180.34 cm Amena Alayna [facility] 0 16:04:57 Date Recorded Body height Body mass index (BMI) Body weight Oxygen saturation Heart rate Respiratory rate Body temperature Systolic And Diastolic Provider Name and Address Organization Details Last Updated DateTime 9 180.34 cm 24.3 kg/m2 33813.0 7 g 97 % 62 /min 18 /min 98.4 [degF] 110/78 mm[Hg] Yvon Calderondameon [facility] 9 20:06:28 Date Recorded Body height Provider Name an d Address Organization Details Last Updated DateTime 03/23/2020 180.34 cm Amena Alayna [facility] 0 09:53:07 Social History Question Answer Notes LastModified by Organizat ion Details LastModified Time Tobacco Smoking Status Current Every Day Smoker Daniel Salcedo PA-C Attn: Accounting [facility], [place], [address], [facility] 12/18/2019 16:20:42 Date Of 1st HIV Medical Visit 04/28/2018 Information not available 08/07/2018 HIV Dx By [facility] No Informatio n not available 08/10/2017 RW HIV Risk Counseling #1 05/12/2020 Information not available 05/12/2020 Depression Screen/Follow Up Plan 05/12/2020 Information not available 05/12/2020 Hep B Status Incomplete Series Information not available 12/11/2018 RW Visit Frequency 3 Months Information not available 05/23/2018 New Patient Type At Intake Returning Information not available 08/20/2018 RW URN [id number] Information no t available 08/10/2017 RWE End Date 08/26/2020 Information not available 12/10/2019 Current Gender Identity Male Information not available 04/28/2018 Technical Advisor / Phone # None Information not available 11/04/2020 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 05/12/2020 Information not available 05/12/2020 How Much Tobacco Do You Smoke? 0.5 PPD Information not available 12/18/2019 On What Date Was Tobacco Cessation Counseling Provided? 05/12/2020 Information not available 05/12/2020 How Many Years Have You Smoked Tobacco? 20 [email or web address] Information not available 05/18/2020 Sex: Male Functional Status Question Answer Note LastModified by Organizat ion Details LastModified Time Do you or have you ever used smokeless tobacco? Never used smokeless tobacco Information not available 12/18/2019 Do you or have you ever used e-cigarettes or vape? Never used electronic cigarettes Information not available 12/18/2019 Mental Status None recorded. Family History Nothing Reported. Medical History Condition Response Coronary Artery Disease N Other N High Blood Pressure N Atrial Fibrillation N Thyroid Problems N Kidney or Bladder Problems N GI Problems N Depression N COPD N Blood Clots N Skin Problems N Eating Disorder N Anemia N Heart Attack (ID) N Anxiety Disorder N Diabetes N Muscle, Joint, or Bone Problems N Seizures/Epilepsy N Acid Reflux (GERD) N Cancer N Stroke N Asthma N Allergies N ADHD N Substance Abuse N High Cholesterol N Hepatitis N Liver Disease N Schizophrenia N Headaches N Heart Failure N Osteoporosis N Immunizations Vaccine Type Date Status Note Provider Nam e and Address Organization Details Recorded Time Influenza, split virus, quadrivalent, preservative 8 completed Not Available [facility] 05/16/2019 02:40:53 Hep A-Hep B 9 completed Not Available [facility] 05/16/2019 02:46:37 Past Encounters Encounter ID Performer Location Encounter Start Date Encounter Closed Date Diagnosis/Indication Diagnosis SNOMED-CT Code Diagnosis ICD10 Code Diagnosis IMO Codes Diagnosis Note [id number] Daniel Salcedo PA-C [facility] () [address] [place] [address] 04/28/2018 15:41:21 04/28/2018 16:29:04 Human immunodeficiency virus infection 88124706 B20 42 y/o AAM Dx HIV+ ~ 1994 in [place], [place].Risk Factor: GBMSMOI's or HIV-relate d complicati ons: Denied As per pt, did not initiate HAART until five or six years ago. (DTG + TVD). Has been without for ~ 6 months. Denied any issues while taking this regimen. He reported a h/o syphilis and Hep C. Is uncertain when he was Tx'd for syphilis (but is certain that he received three Bicillin injections ) and stated that he was successful ly treated for HCV in 2017. He denied a h/o MTB/LTBI, Hep B. Mr. Adair is reporting lower Right side tooth pain x 2d but is otherwise feeling well today and denied changes in vision, frequent or severe headaches, fevers, night sweats, excessive fatigue, LAD, odynophagi a, cough, diarrhea or rash. Mr. Adair is a former [facility] patient and moved from [place], [place] to the [facility] 12 months ago. He is here today to establish HIV care with [facility] . Stated that he has a medical lead ([facility]) and has a scheduled follow up appointmen t with her on 04/30/18. Plan:Blood draw todayPleas e call our office when you receive notificati on of active [place]--will then refill DTG + TVD.Med Records from [facility] have been requested. Please use condoms RTC 8 weeks for follow up. History of hepatitis C 2560688695 9101 Z86.19 Tx'd with a DAA in 2017 (as per pt). 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 Smokes tobacco daily 449 002653 Z72.0 smoking ~ 1/2 ppd Dental abscess 021261684 K04.7 ~ #29 and #30 Rx clinda x 7d [id number] Daniel Salcedo PA-C [facility] ([facility]) [address] [place] [address] 06/26/2018 15:54:13 06/27/2018 09:35:02 Human immunodeficiency virus infection 04074571 B20 March 2018: CD4+: 929 (39%) VL: 12 K copies Mr. Adair is here today for a scheduled follow up clinic appointmen t. He is uninsured. Stated that he has a medical lead (ES) and has a scheduled follow up appointmen t with her to apply for [place] ADAP. 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 He is feeling well today and denied changes in vision, frequent or severe headaches, fevers, night sweats, excessive fatigue, LAD, odynophagi a, cough, diarrhea or rash. Med records from [facility] have not yet been received. Plan:Plededra e call our office when you receive notificati on of active [place] ADAP--will then refill DTG + TVD.Med Records from [facility] have been requested again.Plea use condoms RTC 6 - 8 weeks after restarting HAART. History of hepatitis C 8187116484 9101 Z86.19 Tx'd with a DAA in 2017 (as per pt). 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 History of syphilis 1087 710147 010299 Z86.16 April 2018:RPR: 1:8 Awaiting [facility] medical records Plan:Will monitor Interferon gamma assay positive 769622088 R89.4 March 2018QG: Positive It is unknown if Mr. Adair has been Tx'd for LTBI in the past.Await ing [facility] med records. [id number] Daniel Salcedo PA-C [facility] () [address] [facility] [place] [address] 10/09/2018 12:19:15 10/09/2018 12:56:13 Human immunodeficiency virus infection 37626735 B20 March 2018: CD4+: 929 (39%) VL: 12 K copies Mr. Adair is here today for a scheduled follow up clinic appointmen t. He has missed two recent scheduled appointmen ts. He has not yet restarted HAART but mentioned that he will receive his shipment from [employer] this afternoon. *Of Note, Mr. Adair has now been without ART x 1 year.* He is reporting a recent Right ankle fracture but otherwise feeling well today and denied changes in vision, frequent or severe headaches, fevers, night sweats, excessive fatigue, LAD, odynophagi a, cough, diarrhea or rash. Plan:Non-f asting blood draw todayIs scheduled to restart HAART (DTG + TVD) todayWe discussed a regimen change (simplific ation, TDF-avoida nce) to Biktarvy-- will do so when his RNA is < 20 copies. Please use condoms RTC 6 weeks for repeat labs. History of hepatitis C 3584706045 9101 Z86.19 Genotype 3 Tx'd with SOF + DCV (x 12 weeks) 2014 Plan:Will check for SVR12 today. 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 Interferon gamma assay positive 512789197 R89.4 March 2018QG: Positive [facility] med records reviewed and there was no mention of LTBI Dx/Tx in the past. Plan:Will repeat a QG today Pain of ri ght ankle joint 5922069732 1581434 M25.571 Stated that he was Dx with a Right ankle Fx (it was broken in three places) after a fall on 10/03/18. Was seen at an ED in [facility] and given a Right ankle boot and crutches.Jayashree gu does not have hospital/E D discharge paperwork or an xray report. Plan:will repeat an ankle Xray and refer to Ortho for mgmt. History of syphilis 1087 198348 453136 Z86.19 07/2012: 1:512 Tx'd with Bicillin x 3 in 04/2013: 1:64 08/2015: 1:32 Tx'd with Bicillin x 1 08/2015: 1:4 03/2017: 1:01 April 2018:RPR: 1:8 Plan: Will monitor Adult heal th examination 957755085 Z00.01 We discussed Mr. Adair establishi care with a PCP. [id number] Paul Toure MD [facility] [address] [address] 10/27/2018 14:55:07 10/28/2018 16:39:21 Pain of right ankle joint 8020362374 5515474 M25.571 Closed fra cture of lateral malleolus of right fibula 1943906248 4287257 S82.61XA Reg work 10/28/18 paperwork completed 15 min [id number] Bhavik Singleton MD [facility] () [address] [place] [address] 11/20/2018 12:07:54 11/20/2018 14:03:05 Human immunodeficiency virus infection 30730521 B20 September 2018: CD4+: 682 (36%) VL: < 20 copies Mr. Adair is here today for a scheduled follow up clinic appointmen t. He has restarted ART and is tolerating the regimen well but very much wants to switch to a str. He is reporting ongoing Right ankle pain but otherwise feeling well today and denied changes in vision, frequent or severe headaches, fevers, night sweats, excessive fatigue, LAD, odynophagi a, cough, diarrhea or rash. Plan:Regim en change to Biktarvy today (simplific ation) Twinrix #1 administer ed today.Plea se use condoms RTC March 2019 for follow up. History of hepatitis C 9823360829 9101 Z86.19 Genotype 3 Tx'd with SOF + DCV (x 12 weeks) 2014September 2018:HCV RNA: Not Detected. [id number] Usama Santillan MD [facility] [address] [place] [address] 02/09/2019 18:38:40 02/10/2019 13:01:26 Medication side effects present 503107914 T50.905A ?? Abscess 794801496 L02.91 Pain of ri ght shoulder joint 9136242507 9194990 M25.124 [id number] Daniel Salcedo PA-C [facility] () [address] [place] [address] 12/18/2019 13:27:19 12/21/2019 08:25:34 Human immunodeficiency virus infection 25056107 B20 Phone Visit (follow-up ) September 2018: CD4+: 682 (36%) VL: < 20 copies This is a scheduled follow-up appointmen t for Mr. Adair. Our last outpt encounter was 14 months ago. Stated that he just ran out of his ART earlier this week. As per Graciela, Mr. Adair filled his Rx Biktarvy in Mar 2019, Apr 2019, August and September 2019. He reported feeling well today and denied changes in vision, frequent or severe headaches, fevers, night sweats, excessive fatigue, anorexia, LAD, odynophagi a, cough, diarrhea or rash. He is case managed at [facility]. Stated that he is living in [place] and is unemployed . Pharmacy: [facility] Plan:Asked that Mr. Adair RTC next week for a blood draw--stat ed that he can't but should be able to do so some time, in the next 2 weeks, maybe. *Will restart his Biktarvy when labs reported.* Made Mr. Adair aware of this; he verbalized understand ing. Please use condoms RTC March 2020 for follow-up. History of syphilis 1087 238439 285923 Z86.19 07/2012: 1:512 Tx'd with Bicillin x 3 in 04/2013: 1:64 08/2015: 1:32 Tx'd with Bicillin x 1 08/2015: 1:4 03/2017: 1:01 April 2018:RPR: 1:8June 2019: 1:2 Plan: Will monitor Adult heal th examination 647529464 Z00.01 We, again, discussed Mr. Adair [facility] with a PCP. Smoker 71302816 F17.200 Smoking ~ 10 - 12 cigarettes /day. [id number] Daniel Salcedo PA-C [facility] () [address] [place] [address] 03/23/2020 08:53:16 03/25/2020 11:52:01 Dysuria 18726140 R30.9 Phone Visit Mr. Adair is reporting 2 days of dysuria.+f requency and did notice once a penile d/c.He absolutely denied any recent sexual activity.D enied fevers or chills. No back pain or rash. Denied abd pain.State d that he had this same exact issue in the past and was ultimately admitted for a prostatiti s. Plan:Instr ucted pt to go to the ED now for an evaluation /workup; he agreed to do so. [id number] Daniel Salcedo PA-C [facility] () [address] [place] [address] 05/12/2020 10:02:48 05/12/2020 14:55:41 Human immunodeficiency virus infection 33388004 B20 Phone Visit (follow-up ) December 2019: CD4+: 1177 (41%) VL: 15 K copies/mL This is a scheduled follow-up appointmen t for Mr. Adair. Our last encounter (phone visit) was 5 months ago (was to follow-up March 2020 but, unfortunat malick, did not do so). Mr. Adair reported no missed doses of ART over the past five days and is tolerating the Biktarvy without side-effec ts. He reported feeling well today and denied changes in vision, frequent or severe headaches, fevers, night sweats, excessive fatigue, anorexia, LAD, odynophagi a, cough, diarrhea or rash. Rx Biktarvy is filled by the [facility] mail-order pharmacy. Plan:Pt will RTC next week for labs + influenza vaccine. Continue Biktarvy. Please use condoms Will follow up August 2020. Smoker 51176219 F17.200 Smoking ~ 10 - 12 cigarettes /day. History of syphilis 1087 130681 325272 Z86.19 07/2012: 1:512 Tx'd with Bicillin x 3 in 04/2013: 1:64 08/2015: 1:32 Tx'd with Bicillin x 1 08/2015: 1:4 03/2017: 1:01 April 2018: RPR: 1:8June 2019: 1:2Septemb er 2020: 1:4 Plan: Will continue to monitor. Adult heal th examination 890004457 Z00.[address] Rivera. Appointmen sched for 05/18/2020. History of hepatitis C 9706913340 9101 Z86.19 Genotype 3 Tx'd with SOF + DCV (x 12 weeks) 2014September 2018:HCV RNA: Not Detected. [id number] Erika Rivera MD [address] [address] 05/18/2020 09:36:12 05/19/2020 07:59:22 Prostatitis 1895937 N41.9 follow up in office in 3 weeks HIV detected 322009647 Z 21 controlled under care of Dr. Salcedo, and on Bitkarvy Increased frequency of urination 221656419 R35.0 Health Concerns Section Related Observation LastModified by Organization Detai ls LastModified Time None Recorded Concern Status LastModified by Organization Details LastModified Time None Recorded Advance Directives Directive None Recorded Payers Insurance Date Sequence Insurance Name Policy Number Policy Adams Covered Member ID Adams Member ID Guarantor Name 06/21/2018 1 [place] [facility]ita [facility] [id number] 10/23/2018 1 *SELF PAY* Navya Adair 10/08/2018 SLIDING FEE SCHEDULE - DISCOUNT Chiquita Adair 10/25/2020 1 [facility] PRIOR TO 10/27/2020 (MEDICAID REPLACEMENT - HMO) Chiquita Adair [id number] Chiquita Adair 04/16/2019 1 [place] Chiquita Adair [id number] Chiquita Adair 10/02/2019 SLIDING FEE SCHEDULE - DISCOUNT Chiquita Adair 10/25/2020 [facility] PRIOR TO 10/27/2020 (MEDICAID REPLACEMENT - HMO) Chiquita Adair [id number] Chiquita Adair Notes Date Note Type Note Provider Name and Address Organization Details Recorded Time 02/09/2019 text/html ROS as noted in the HPI C/o right shoulder pain. Hurts to lift it. Then c/o rash on left lower leg, the rash on left buttock, and then he started on a new HIV medicine and he thinks it gave him diarrhea. Usama Santillan MD Attn: Accounting,[address] , [place], [address], [facility] 02/10/2019 01:33:49 12/18/2019 text/html HIVReported by PatientHPIFor context, patient reportsdate of diagnosis: 1994.Phone Visit (follow-up) This is a scheduled follow-up appointment for Mr. Adair. Our last outpt encounter was 14 months ago. Stated that he just ran out of his ART earlier this week. As per Graciela, Mr. Adair filled his Rx Biktarvy in Mar 2019, Apr 2019, August and September 2019. He reported feeling well today and denied changes in vision, frequent or severe headaches, fevers, night sweats, excessive fatigue, anorexia, LAD, odynophagia, cough, diarrhea or rash. He is case managed at [facility]. Stated that he is living in [place] and is unemployed. Pharmacy: [facility] Daniel Salcedo PA-C Attn: Accounting[address] , [place], [address], [facility] 12/18/2019 16:37:42 03/23/2020 text/html Phone Visit Mr. Adair is reporting 2 days of dysuria. +frequency and did notice once a penile d/c. He absolutely denied any recent sexual activity. Denied fevers or chills. No back pain or rash. Denied abd pain. Stated that he had this same exact issue in the past and was ultimately admitted for a prostatitis. Daniel Salcedo PA-C Attn: Accounting[address] [facility], [place], [address], [facility] 03/23/2020 11:31:27 05/12/2020 text/html HIVReported by PatientHPIFor context, patient reportsdate of diagnosis: 1994.Phone Visit (follow-up) This is a scheduled follow-up appointment for Mr. Adair. Our last encounter (phone visit) was 5 months ago (was to follow-up March 2020 but, unfortunately, did not do so). Mr. Adair reported no missed doses of ART over the past five days and is tolerating the Biktarvy without side-effects. He reported feeling well today and denied changes in vision, frequent or severe headaches, fevers, night sweats, excessive fatigue, anorexia, LAD, odynophagia, cough, diarrhea or rash. Rx Biktarvy is filled by the [facility] mail-order pharmacy. Daniel Salcedo PA-C Attn: Accounting[address] [place], [address], [facility] 05/12/2020 12:00:18 05/18/2020 text/html ROS as noted in the HPI patient is a 44 year old male he has known HIV, and previously treated treated for Hepatitis C. He is complaining of history of enlarged prostate and decreased urinary stream. No fever or abdominal pain. Erika Rivera MD Attn: Accounting[address] [place], [address], [facility] 05/18/2020 11:28:24
--- OUTSIDE RECORDS SUMMARY | 2025-04-21 10:09 | XMS_ITS | Clinical Summary ---
Author Organization [facility] Address [facility] [place] [address] Care Team Providers Care Laminator Preforms Name Role Phone Corey Strauss MD Primary Care Provider Savanna Nash PharmD Unavailable [phone] Lc Roth MD Unavailable [phone] Source Comments [facility],non-owned Affiliates and Associated Physician Practices is amultiple site organization consisting of ambulatory clinics and hospital sitesin [place], [place], [place] and [place]. This disclosure is being madepursuant to the Care Everywhere program and may not contain all information available regarding this patient. Last updated 18.[facility] Allergies No known active allergies Medications * Be aware that medications may not be up to date on this document. Alwaysverify current medications with the patient. albuterol HFA (Proventil; Ventolin; Proair) 108 (90 Base) MCG/ACT inhaler Inhale 2 (two) puffs by mouth every 6 hours as needed Active meloxicam (Mobic) 7.5 MG tabletIndications:N europathy Take 1 (one) tablet by mouth 2 times daily 60 tablet 5 025 Active guaiFENesin ER 12hr (Mucinex) 600 MG tablet Take 1 (one) tablet by mouth every 12 hours 60 tablet 025 Active gabapentin (Neurontin) 300 MG capsule Take 1 (one) capsule by mouth at bedtime 90 capsule 025 Active fluticasone propionate (Flonase Allergy Relief) 50 MCG/ACT nasal spray [place] 2 (two) sprays into each nostril once daily as needed 16 g Active DULoxetine (Cymbalta) 60 MG capsuleIndications: Neuropathy Take 1 (one) capsule by mouth once daily 30 capsule Active cetirizine (ZyrTEC) 10 MG tabletIndications:A llergy, initial encounter Take 1 (one) tablet by mouth once daily 30 tablet Active bictegravir-emtrici tabine-tenofovir (Biktarvy) 50-200-25 MG tabletIndications:H uman immunodeficiency virus (HIV) disease (HCC) Take 1 (one) tablet by mouth once daily 30 tablet 025 Active allopurinol (Zyloprim) 100 MG tabletIndications: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, unspecified cause, unspecified site Take 2 (two) tablets by mouth once daily 180 tablet 1 Active rosuvastatin (Crestor) 10 MG tabletIndications:T ype 2 diabetes mellitus without complication, without long-term current use of insulin ([facility]) Take 1 (one) tablet by mouth once daily 90 tablet 2 Active Semaglutide(0.25 or 0.5MG/DOS) 2 MG/3ML Solution Pen-injector (Ozempic (0.25 or 0.5 MG/DOSE))Indication s:Type 2 diabetes mellitus without complication, without long-term current use of insulin ([facility]) Inject 0.25 mg subcutaneously every 7 days (once a week) 3 mL 025 2025 Active metFORMIN (Glucophage) 500 MG tabletIndications:T ype 2 diabetes mellitus without complication, without long-term current use of insulin ([facility]) Take 1 (one) tablet by mouth 2 times daily with morning and evening meal 180 tablet 2 Active metFORMIN (Glucophage) 500 MG tabletIndications:T ype 2 diabetes mellitus without complication, without long-term current use of insulin ([facility]) Take 1 (one) tablet by mouth 2 times daily with morning and evening meal 60 tablet 025 2024 Discontin ued(Reord er) allopurinol (Zyloprim) 100 MG tabletIndications: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, unspecified cause, unspecified site Take 2 (two) tablets by mouth once daily 60 tablet 1 025 2024 Discontin ued(Reord er) cetirizine (ZyrTEC) 10 MG tabletIndications:A llergy, initial encounter Take 1 (one) tablet by mouth once daily 30 tablet 1 025 2024 Discontin ued(Reord er) gabapentin (Neurontin) 100 MG capsuleIndications: Neuropathy Take 1 (one) capsule by mouth 2 times daily 60 capsule 1 025 2024 Discontin ued(Clini robert Decision) meloxicam (Mobic) 7.5 MG tabletIndications:N europathy Take 1 (one) tablet by mouth 2 times daily 60 tablet 1 025 2024 Discontin ued(Reord er) rosuvastatin (Crestor) 10 MG tabletIndications:T ype 2 diabetes mellitus without complication, without long-term current use of insulin (HCC) Take 1 (one) tablet by mouth once daily 30 tablet 1 025 2024 Discontin ued(Reord er) DULoxetine (Cymbalta) 60 MG capsuleIndications: Neuropathy Take 1 (one) capsule by mouth once daily 30 capsule 1 2024 Discontin ued(Reord er) bictegravir-emtrici tabine-tenofovir (Biktarvy) 50-200-25 MG Take 1 (one) tablet by mouth once daily 30 tablet 2 025 2024 Discontin ued(Reord er) tirzepatide (Zepbound) 2.5 MG/0.5ML injectionIndication s:Body Mass Index Greater Than or Equal to 25 kg/m2 Inject 2.5 (two and one-half) mg subcutaneously every 7 days (once a week) Reasons: Overweight 2 mL 025 2024 Discontin ued(Clini robert Decision) Zoster Vaccine, Recombinant, Adjuvanted (Shingrix; 18y+) 50 MCG/0.5ML SUSR (RZV) Inject 0.5 mL into muscle once for 1 dose 0.5 mL 025 2024 metFORMIN (Glucophage) 500 MG tabletIndications:T ype 2 diabetes mellitus without complication, without long-term current use of insulin (HCC) Take 1 (one) tablet by mouth 2 times daily with morning and evening meal 60 tablet 025 2024 Discontin ued(Reord er) rosuvastatin (Crestor) 10 MG tabletIndications:T ype 2 diabetes mellitus without complication, without long-term current use of insulin (HCC) Take 1 (one) tablet by mouth once daily 30 tablet 025 2024 Discontin ued(Reord er) allopurinol (Zyloprim) 100 MG tabletIndications: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, unspecified cause, unspecified site Take 2 (two) tablets by mouth once daily 60 tablet 025 2024 Discontin ued(Reord er) Active Problems Problem Noted Date Diagnosed Date Asymptomatic HIV infection, with no history of HIV-related illness 01/19/2025 Assessment & Plan (01/19/2025 4:20 PM CDT): - on Biktarvy - last viral load of 25 and CD4 count of 871 - started following with [facility] HBV (hepatitis B virus) infection 01/19/2025 Assessment & Plan (01/19/2025 4:21 PM CDT): - status post treatment according to the patient - reported having received HPV vaccine in the past but lab test at [facility] showed no response. Administrating 2nd dose of hep B vaccine today - on Biktarvy for HIV Chronic hepatitis C virus infection 01/19/2025 Assessment & Plan (01/19/2025 4:21 PM CDT): - status post treatment according to the patient Type 2 diabetes mellitus, wi out long-term current use of insulin 01/19/2025 Assessment & Plan (01/19/2025 4:24 PM CDT): - recent diagnosis with HbA1c of 6.5 - started patient on metformin 500 mg b.i.d. - explained the patient about complications of diabetes if not controlled properly - educated patient about diabetic diet and the importance of exercise and controlling blood sugar levels - counseled patient about smoking cessation and losing weight and set a goal for patient of losing 5-10% of his original weight via shared decision-making Anxiety 01/19/2025 Assessment & Plan (01/19/2025 4:25 PM CDT): - provided patient resources for therapist - educated patient about stress reducing lifestyle changes MDD (major depressive disorder) 01/19/2025 Assessment & Plan (01/19/2025 4:25 PM CDT): - started on duloxetine for depression as well as neuropathy - provided patient resources for therapy Gout 01/19/2025 Assessment & Plan (01/19/2025 4:25 PM CDT): - patient on allopurinol. Continue that - asymptomatic now - educated patient about cutting down on alcohol as alcoholic and flare gout Allergies 01/19/2025 Assessment & Plan (01/19/2025 4:26 PM CDT): - under good control on Zyrtec. Continue that Neuropathy 01/19/2025 Assessment & Plan (01/19/2025 4:26 PM CDT): - possibly due to longstanding HIV - on gabapentin and meloxicam but not under good control - also started on duloxetine 30 mg for 1 week and then transitioning to duloxetine 60 mg Encounters Date Type Department Care Team Description 04/16/2025 Telephone Internal Medicine Clinic at [facility] [address] [place] [phone] Kalli Paniagua CPhT Insurance Issue/question 04/15/2025 Orders Only [facility] [address] [place] [id number] Corey Strauss MD Type 2 diabetes mellitus without complication, without long-term current use of insulin (HCC) 04/14/2025 Orders Only [facility] [address] [place] [phone] Corey Strauss MD Chronic gout without tophus, unspecified cause, unspecified site; Type 2 diabetes mellitus without complication, without long-term current use of insulin ([facility]) 04/14/2025 Orders Only [facility] Internal Medicine [address] [place] [phone] Lc Roth MD Human immunodeficiency virus (HIV) disease ([facility]) 04/14/2025 Telephone Internal Medicine Clinic at [address] [address] Corey Strauss MD Medication Problem 04/14/2025 Refill Internal Medicine Clinic at [address] [address] Corey Strauss MD MEDICATION REFILL 04/13/2025 9:49 AM [facility] - 04/13/2025 11:59 PM [facility] [facility] Hospital Encounter Internal Medicine Clinic at [address] [phone] Paul Esparza DO Discharge Disposition: Home or Self Care 03/23/2025 Telephone [facility] - Internal Medicine [address] [place] [phone] Kalli Paniagua, [place] Medication Monitoring 02/02/2025 Telephone [facility] Internal Medicine [address] [place] [phone] Lc Roth MD Refill Request from Last 3 Months Immunizations Immunization Administration Dates Next Due INFLUENZA VACCINE, TRIV. (AF LURIA, FLUZONE TRIVALENT; 6MO+) (IIV3) 02/11/2013 FLU VACCINE QUAD IIV4 SPLIT 0.25 ML IM 8 FLU VACCINE TRI IIV3 SPLIT PF IM (FLUVIRIN) 12/29,03/25/2007 HEP A/HEP B 11/20/2018 HEP B VACCINE, ADULT 3 DOSE 12/30/2007, 7 Hep B, Adjuvanted 01/19/2025,09/23/2024 INFLUENZA A [id number] VACCINE 04/26/2009 INFLUENZA VACCINE 02/04/2024 MENINGOCOCCAL ACWY MENVEO 04/13/2025 PNEUMOCOCCAL PCV20 CONJ VAC IM 01/19/2025 PNEUMOCOCCAL PPSV23 02/11/2013,03/25/2007 TDAP (7yrs+) 02/20/2021 Family History Medical History Relation Name Comments Schizophrenia Brother Asthma Father Diabetes - Type 2 Mother Hypertension Mother Cancer - Breast Sister Relation Name Status Comments Brother Father Mother Sister Social History Tobacco Use Types Packs/Day Years Used Date Smoking Tobacco: Every Day Cigarettes 0.5 35 Smokeless Tobacco: Never Tobacco Cessation:Ready to Q uit: Not Asked; Counseling Given: Not Answered Alcohol Use Standard Drinks/Week Comments Yes 12 [...] file Not on file Not on file Last Filed Vital Signs Vital Sign Reading Time Taken Comments Blood Pressure 130/86 04/13/2025 9:58 AM [facility] [facility] Pulse 84 04/13/2025 9:58 AM [employer] [employer] [facility] [facility] Temperature 36.6 C (97.8 F) 04/13/2025 9:58 AM [facility] [facility] Respiratory Rate 16 04/13/2025 9:58 AM [facility] [facility] Oxygen Saturation 96% 04/13/2025 9:58 AM [employer] [employer] [facility] Inhaled Oxygen Concentration - - Weight 98.8 kg (217 lb 12.8 oz) 04/13/2025 9:58 AM [facility] [employer] [facility] [facility] Height 180.3 cm (5' 11) 04/13/2025 9:58 AM [employer] [employer] [facility] [facility] Body Mass Index 30.38 04/13/2025 9:58 AM [facility] [employer] [facility] [facility] Plan of Treatment Upcoming Encounters Date Type Department Care Team (Late st Contact Info) Description 05/05/2025 8:30 AM [facility] [facility] Appointment [facility] - Internal Medicine [address] [place] [phone] Lc Roth MD [address] [facility] [place] [address] 05/05/2025 9:30 AM [facility] [facility] Appointment Internal Medicine Clinic at [facility] [address] [place] [address] Ike Roland MD [address] [place] [phone] Health Maintenance Due Date Last Done Comments COLOGUARD (AGES 45-75) - COLON CA SCREENING 1975 COLON MONITORING 1975 COLONOSCOPY - COLON CA SCREENING 1975 CT COLONOGRAPHY - COLON CA SCREENING 1975 Colorectal Cancer Screening 1975 FIT - COLON CA SCREENING 1975 FLEX SIG - COLON CA SCREENING 1975 ZOSTER VACCINE (1 of 2) 11/20/1994 DIABETES - URINE PROTEIN SCREENING 04/29/2024 COVID-19 VACCINE ( season) 2024 INFLUENZA VACCINE (#1) 2024 , 04/28/2018, 02/11/2013, Additional history exists DIABETES RETINOPATHY SCREENING 01/19/2025 DIABETES-FOOT EXAM WITH MONOFILAMENT 01/19/2025 MENINGOCOCCAL GROUPS A/C/Y/W VACCINE (2 - Risk 2-dose series) 06/08/2025 04/13/2025 DIABETES-HGB A1C 10/12/2025 04/13/2025 DIABETES-SERUM CREATININE 01/19/2026 01/19/2025 DTAP/TDAP/TD VACCINES (2 - Td or Tdap) 02/20/2031 02/20/2021 DEPRESSION SCREENING Completed 01/19/2025 HEPATITIS B VACCINE Completed 01/19/2025, 09/23/2024, 11/20/2018, Additional history exists HEPATITIS C SCREENING Discontinued 01/19/2025, 025 HIB VACCINE Aged Out No longer eligi ble based on patient's age to complete this topic HPV VACCINE Aged Out No longer eligi ble based on patient's age to complete this topic MENINGOCOCCAL (Group B) VACCINE SHARED DECISION-MAKING Aged Out No longer eligible based on patient's age to complete this topic Procedures Procedure Name Priority Date/Time Associated Diagnosis Comments TSH REFLEX FREE T4 Routine 04/13/2025 11 :33 AM [facility] Class 1 obesity with body mass index (BMI) of 30.0 to 30.9 in adult, unspecified obesity type, unspecified whether serious comorbidity present LIPID PROFILE Routine 04/13/2025 11:33 AM [facility] [facility] Screening cholesterol level PROSTATE SPECIFIC ANTIGEN SCREEN Routine 04/13/2025 11:33 AM [facility] [facility] Low back pain, unspecified back pain laterality, unspecified chronicity, unspecified whether sciatica present GLUCOSE - POINT OF CARE Routine 04/13/2025 10:05 AM [facility] [facility] HEMOGLOBIN A1C - POCT INTERFACED Routine 04/13/2025 10:01 AM [facility] COMPREHENSIVE METABOLIC PANEL Routine 01/19/2025 3:34 PM CDT Human immunodeficiency virus (HIV) disease (HCC) from Last 3 Months or Most Recently Relevant to Health Maintenance Results * TSH REFLEX FREE T4 (04/13/2025 11:33 AM [facility] [facility]) TSH 0.974 0.350 - 4.940 uIU/mL 04/13/2025 1:28 PM [facility] [facility] Blood BLOOD SPECIMEN / Unknown Venipuncture / Unknown 04/13/2025 11:33 AM [facility] [facility] 04/13/2025 12:17 PM [facility] [facility] Harsha Vargas MD LAB - CHEMISTRY LIOR WARE Final Result [facility] [address] [place] [address] * PROSTATE SPECIFIC ANTIGEN SCREEN (04/13/2025 11:33 AM [facility] [facility]) PSA 0.72 <=4.00 ng/mL 04/13/2025 1:27 PM [facility] [employer] [facility] Blood BLOOD SPECIMEN / Unknown Venipuncture / Unknown 04/13/2025 11:33 AM [facility] [employer] [facility] [facility] 04/13/2025 12:17 PM [facility] [employer] [facility] [facility] Narrative [facility] - 04/13/2025 1:27 PM [employer] [employer] [facility] [facility] PSA values will vary depending on testing procedure used. Results are not comparable across different methods. PSA values obtained by [facility] (not [facility]) use the Renee Alinity immunoassay method. Harsha Vargas MD LAB - CHEMISTRY LIOR WARE Final Result Performing Organization Address City/[facility]/ZIP Co de Phone Number [facility] [address] [place] [phone] * (ABNORMAL) LIPID PROFILE (04/13/2025 11:33 AM [facility] [facility]) Cholesterol 202(H) <200 mg/dL 04/13/2025 1:[address] [facility] Triglycerides 269(H) <150 mg/dL 04/13/2025 1:[address] [facility] HDL Cholesterol 37(L) >40 mg/dL 1:[address] [facility] LDL Calculated 111 <130 mg/dL 04/13/2025 1:[address] [facility] Comment:LDL is calculated us ing the Friedewald equation. VLDL Calculated 54(H) <=30 mg/dL 04/13/2025 1:[address] [facility] Chol HDL Ratio 5.5(H) <4.5 04/13/2025 1:[address] [facility] LDL/HDL Ratio 3.0 <5.0 04/13/2025 1:[address] [facility] Blood BLOOD SPECIMEN / Unknown Venipuncture / Unknown 04/13/2025 11:33 AM [facility] [facility] 04/13/2025 12:17 PM [facility] [facility] Harsha Vargas MD LAB - CHEMISTRY LIOR WARE Final Result Performing Organization Address City/[facility]/ZIP Co de Phone Number [facility] [address] [place] [phone] * GLUCOSE - POINT OF CARE (04/13/2025 10:05 AM [facility] [facility]) Glucose WB/POC 91 70 - 99 mg/dL 04/13/2025 10:[address] [facility] Specimen Type Arterial/C apillary 04/13/2025 10:[address] [facility] Blood BLOOD SPECIMEN / Unknown 04/13/2025 10:05 AM [facility] [facility] 04/13/2025 10:11 AM [facility] us Paul Esparza LAB - POINT OF CARE ORDERABLES F inal Result [facility] [address] [place] [address] * (ABNORMAL) HEMOGLOBIN A1C - POCT INTERFACED (04/13/2025 10:01 AM [facility]) [facility] Hemoglobin A1C POCT 6.6(H) <5.7 % 04/13/2025 10:[address] [facility] Estimated Average Glucose 143 mg/dL 04/13/2025 10:[address] [facility] Blood BLOOD SPECIMEN / Unknown 04/13/2025 10:01 AM [facility] [facility] 04/13/2025 10:13 AM [facility] Narrative [facility] - 04/13/2025 10:13 AM [facility] HbA1c Interpretation: Normal: < 5.7% Pre-diabetes: 5.7-6.4% Diabetes: Equal to or greater than 6.5% This test should only be used to monitor, not diagnose diabetes. Test results diagnostic of diabetes should be repeated by another method with a different assay principle for confirmation. Treatment target values recommended by ADA and other clinical organizations should be used to evaluate metabolic control in patients. Patients with a hemoglobin of <7 or >24 should not be tested using this method. Patients known to have these conditions should be assayed by a test employing a different assay principle. Glycated hemoglobin F is not measured by the DCA HbA1c assay. At very high levels of hemoglobin F (> 10%), HbA1c is lower than expected. Patients with HbS or HbE should not be tested using this device. HbS or HbE cause a higher result than expected. Conditions such as hemolytic anemia, polycythemia, homozygous and HbC, can result in decreased life span of the red blood cells, which causes HbA1c results to be lower than expected. The Siemens DCA assay for the measurement of HbA1c is a National Glycohemoglobin Standardization Program (NGSP) certified method. us Paul Gamezmaira SALDANA LAB - POINT OF CARE ORDERABLES F inal Result [facility] [address] [place] [address] * (ABNORMAL) COMPREHENSIVE METABOLIC PANEL (01/19/2025 3:34 PM CDT) Glucose 104(H) 70 - 99 mg/dL 01/19/2025 5:25 PM CDT [facility] Sodium 140 136 - 145 mmol/L 01/19/2025 5:25 PM CDT [facility] Potassium 4.0 3.5 - 5.1 mmol/L 01/19/2025 5:25 PM CDT [facility] Chloride 105 98 - 107 mmol/L 01/19/2025 5:25 PM CDT [facility] CO2 24 22 - 29 mmol/L 01/19/2025 5:25 PM CDT [facility] Calcium 9.3 8.4 - 10.4 mg/dL 01/19/2025 5:25 PM CDT [facility] Anion Gap 11 6 - 16 mmol/L 01/19/2025 5:25 PM CDT [facility] BUN 12 5.3 - 18.7 mg/dL 01/19/2025 5:25 PM CDT [facility] Creatinine 0.94 0.72 - 1.25 mg/dL 01/19/2025 5:25 PM CDT [facility] Alkaline Phosphatase 89 40 - 150 U/L 01/19/2025 5:25 PM CDT [facility] ALT 55 6 - 57 U/L 01/19/2025 5:25 PM CDT [facility] AST 32 10 - 48 U/L 01/19/2025 5:25 PM CDT [facility] Protein Total 8.0 6.4 - 8.3 gm/dL 01/19/2025 5:25 PM CDT [facility] Albumin 4.4 3.1 - 4.5 gm/dL 01/19/2025 5:25 PM CDT [facility] Bilirubin Total 0.2 0.2 - 1.2 mg/dL 01/19/2025 5:25 PM CDT [facility] eGFR by CKD-EPI >90 >=90 mL/min/1.7 3 m2 01/19/2025 5:25 PM CDT [facility] Comment:Estimated Glomerular Filtration Rate (eGFR) calculated using the CKD-EPI Creatinine Equation (2020), per the National Kidney Foundation and [employer] [place] [employer] of Nephrology recommendations. Blood BLOOD SPECIMEN / Unknown Venipuncture / Unknown 01/19/2025 3:34 PM CDT 01/19/2025 4:38 PM CDT us Rose Segundo PA-C LAB - CHEMISTRY ORDERABLES Fi nal Result [facility] [address] [place] [address] from Last 3 Months or Most Recently Relevant to Health Maintenance Insurance [facility] MEDICAID - [place] Care Teams Laminator Preforms Relationship Specialty Start Date End Date oCrey Strauss MD [address] [place] [phone] PCP - General Student Resident 01/19/25 Savanna Nash, PharmD [address] [place] [phone] Pharmacist Pharmacist 01/19/25 Lc Roth MD [address] [place] [address] [place] [address] Infectious Disease 01/19/25
--- NOTE | 2025-04-21 10:20 | ED.ABDPAIN ---
HPI - Abdominal Pain General Chief Complaint: Abdominal Pain <TAD Bazan Last Filed: 04/21/25 13:56> Stated Complaint: Abdominal pain R <TAD Bazan Last Filed: 04/21/25 13:56> Time Seen by Provider: 04/21/25 10:00 <TAD Bazan Last Filed: 04/21/25 13:56> Source: patient <TAD Bazan Last Filed: 04/21/25 13:56> Mode of arrival: ambulatory <TAD Bazan Last Filed: 04/21/25 13:56> Limitations: no limitations <TAD Bazan Last Filed: 04/21/25 13:56> History of Present Illness HPI narrative: Patient is a 49 y/o male who presents to the ED with c/o R upper abdominal pain. Patient reports he was at work this morning and began having sudden sharp/cramping/squeezing pain in his R upper abdomen. States pain was severe at first and he felt somewhat short of breath d/t the pain. Pain is improved currently, but still present. Reports some abdominal bloating. Denies N/V/D, fevers, urinary symptoms. Patient reports history of frequent but not daily EtOH use. States he has not drink in the past 12 days. Denies history of withdrawal symptoms or seizures. Denies history of liver cirrhosis or liver problems. <TAD Bazan Last Filed: 04/21/25 13:56> Related Data Home Medications: Home Medications ?Medication ?Instructions ?Recorded ?Confirmed ?Last Taken ?Type albuterol sulfate 90 mcg/actuation 1 inh inhalation DAILY 04/21/25 04/21/25 04/20/25 History aerosol inhaler allopurinol 100 mg tablet 100 mg PO DAILY 04/21/25 04/21/25 04/20/25 History atorvastatin 20 mg tablet 20 mg PO DAILY 04/21/25 04/21/25 04/20/25 History bictegravir 50 mg-emtricitabine 1 tablet PO DAILY 04/21/25 04/21/25 04/20/25 History 200 mg-tenofovir alafenam 25 mg tablet (Biktarvy) cetirizine 10 mg tablet 10 mg PO DAILY 04/21/25 04/21/25 04/20/25 History duloxetine 60 mg capsule,delayed 60 mg PO DAILY 04/21/25 04/21/25 04/20/25 History release gabapentin 300 mg capsule 300 mg PO HS 04/21/25 04/21/25 Unknown History meloxicam 15 mg tablet 7.5 mg PO BID 04/21/25 04/21/25 04/20/25 History metformin 500 mg tablet 500 mg PO BID 04/21/25 04/21/25 04/20/25 History rosuvastatin 10 mg tablet 10 mg PO DAILY 04/21/25 04/21/25 04/20/25 History <Savanna Dutton PA-C - Last Filed: 04/21/25 13:56> Allergies/Adverse Reactions: Allergies Allergy/AdvReac Type Severity Reaction Status Date / Time No Known Allergies Allergy Verified 04/21/25 17:39 <Savanna Dutton PA-C - Last Filed: 04/21/25 13:56> Review of Systems Review of Systems: All systems reviewed & are unremarkable except as noted in HPI. <Savanna Dutton PA-C - Last Filed: 04/21/25 13:56> All systems reviewed & are unremarkable except as noted in HPI and below <TAD Bazan Last Filed: 04/21/25 13:56> [facility] Social History Social History: Social History Smoking packs per day: 0.25 Smoking cigarettes per day: 5.0 Years smoked: 30 Smoking pack-years: 7.50 Smoking status: Current every day smoker Tobacco type: cigarettes Alcohol intake: never Substance use: never Lack of Transportation: No Lack of Food: Never True Current Housing: I Do Not Have Housing Concerned About Future Housing: No Difficulty Paying Gas/Electric Bills: YES Difficulty Paying for Meds: No Currently Unemployed: No Education: High School Diploma/GED Difficulty w/ Childcare or Family Care: No Spiritual care concerns: No <TAD Bazan Last Filed: 04/21/25 13:56> Exam Narrative: GENERAL: Well appearing, well-nourished, non-toxic, in no acute distress. HEAD: Normocephalic, atraumatic. RESPIRATORY: Airway patent, respirations nonlabored. Clear to auscultation bilaterally, no rales, rhonchi, wheezing. CARDIOVASCULAR: Mildly tachycardic, regular rhythm without murmurs, rubs, or gallops. ABDOMINAL: Soft, tenderness to palpation epigastric region, right upper quadrant, no rebound, nondistended. Normoactive BS. MUSCULOSKELETAL: Moves all extremities. No gross deformities. SKIN: Warm, dry, normal color. NEURO: A&O X3. Speech clear. Cranial nerves II-XII grossly intact. Steady gait. No ataxic movements. PSYCHIATRIC: Appropriate mood and affect. Normal interaction. 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 I performed all aspects of the MDM as documented. <Joel Reddy MD - Last Filed: 04/21/25 19:17> Vital Signs Vital signs: Vital Signs Temperature 98.1 F 04/21/25 09:02 Pulse Rate 115 H 04/21/25 09:02 Respiratory Rate 19 04/21/25 09:02 Blood Pressure 92/62 L 04/21/25 09:02 Pulse Oximetry 97 04/21/25 09:02 Oxygen Delivery Room Air 04/21/25 09:02 Temperature 98.1 F 04/21/25 09:02 Pulse Rate 115 H 04/21/25 15:40 Respiratory Rate 16 04/21/25 15:40 Blood Pressure 118/66 04/21/25 15:40 Pulse Oximetry 97 04/21/25 15:40 Oxygen Delivery Room Air 04/21/25 17:21 <Savanna Dutton PA-C - Last Filed: 04/21/25 13:56> Vital Signs Temperature 98.1 F 04/21/25 09:02 Pulse Rate 115 H 04/21/25 09:02 Respiratory Rate 19 04/21/25 09:02 Blood Pressure 92/62 L 04/21/25 09:02 Pulse Oximetry 97 04/21/25 09:02 Oxygen Delivery Room Air 04/21/25 09:02 Temperature 98.1 F 04/21/25 09:02 Pulse Rate 115 H 04/21/25 15:40 Respiratory Rate 16 04/21/25 15:40 Blood Pressure 118/66 04/21/25 15:40 Pulse Oximetry 97 04/21/25 15:40 Oxygen Delivery Room Air 04/21/25 17:21 <Joel Reddy MD - Last Filed: 04/21/25 19:17> [facility] MDM Narrative Medical decision making narrative: Patient presented to ED with right upper quadrant abdominal pain that began this morning, somewhat improved currently. History of frequent ETOH use, but has not drink in the last 12 days. No evidence of acute alcohol withdrawal upon my examination. Patient denies withdrawal symptoms. Initial blood pressure was slightly low, however by the time of my evaluation patient's was normotensive. Tachycardic into the 110s-120s. Afebrile. Cbc with blood cell count of 15.2. Hemoglobin 12.8, relatively stable. CMP is unremarkable. Normal kidney function. Normal LFTs and lipase. Mac borderline at 1.7. Given replacement. Lactic acid within normal range. UA is consistent with infection, positive nitrate, 3+ leuk esterase, greater than 100 WBC. Sent for culture. Will treat. CT scan of abdomen/pelvis was obtained showing evidence of recently passed stone versus pyelonephritis. Rocephin started in the ED for pyelo picture. Patient persistently tachycardic despite fluid resuscitation. Patient is meeting criteria for sepsis. Will be admitted for further evaluation and continued IV antibiotics. Discussed case with Dr. Norwood, hospitalist, accepted patient for admission. Patient is in agreement with plan and need for admission. <Savanna Dutton PA-C - Last Filed: 04/21/25 13:56> Differential Diagnosis Differential Diagnosis: Cholecystitis, cholelithiasis, pancreatitis, bowel obstruction, UTI/pyelonephritis, ureterolithiasis <Savanna Dutton PA-C - Last Filed: 04/21/25 13:56> Medical Records I have reviewed the following patient records and this information was taken into consideration when formulating the assessment and plan.: previous labs, previous ER visits, previous hospitalizations and previous clinic visits <SKYLAR BazanC - Last Filed: 04/21/25 13:56> Lab Data MDM Lab Attestation statement: I personally reviewed the patient's lab results. <Savanna Dutton PA-C - Last Filed: 04/21/25 13:56> Result diagrams: 04/21/25 10:22 04/21/25 10:22 <Savanna Dutton PA-C - Last Filed: 04/21/25 13:56> Labs: Lab Results 04/21/25 Range/Units 10:22 WBC 15.2 H (4.5-10.0) K/mm3 RBC 4.52 L (4.6-6.20) M/mm3 Hgb 12.8 L (14.0-18.0) g/dL Hct 39.5 L (42.0-52.0) % MCV 87.4 (80-100) fl MCH 28.3 (26-34) pg MCHC 32.4 (32-36) g/dl RDW 14.1 (11.5-14.5) % Plt Count 397 H (150-375) k/mm3 MPV 8.6 (7.4-10.4) fl Immature Gran % (Auto) 0.5 (0-0.5) % Neut % (Auto) 64.4 (45.5-73.1) % Lymph % (Auto) 21.3 (18.3-44.2) % [place] % (Auto) 12.9 H (2.6-8.5) % Eos % (Auto) 0.5 (0-4.4) % Baso % (Auto) 0.4 (0.2-1.2) % Lymph # (Auto) 3.24 H (0.9-3.2) K/mm3 [place] # (Auto) 2.0 H (0.1-0.6) K/mm3 Eos # (Auto) 0.1 (0-0.3) K/mm3 Baso # (Auto) 0.1 (0.0-0.1) K/mm3 Abs Immat Gran (auto) 0.08 H (0.00-0.031) K/mm3 Absolute Neuts (auto) 9.8 H (1.3-6.7) K/mm3 Absolute Nucleated RBC 0.000 (0.0-0.012) K/mm3 Nucleated RBC % 0.0 (0.0-0.2) % Sodium 134 L (137-145) mmol/L Potassium 4.1 (3.4-5.0) mmol/L Chloride 99 (98-107) mmol/L Carbon Dioxide 26 (22-30) mmol/L Anion Gap 9 (4-12) mmol/L BUN 7 L (9-20) mg/dL Creatinine 0.94 (0.7-1.3) mg/dL Estim Creat Clear Calc 89 ml/min Estimated GFR > 60 (59 - ) Glucose 109 (65-110) mg/dL Lactic Acid 0.7 (0.7-2.0) mmol/L Calcium 9.3 (8.4-10.2) mg/dL Magnesium 1.7 (1.6-2.3) mg/dL Total Bilirubin 0.8 (0.2-1.3) mg/dL AST 28 (17-59) U/L ALT 29 (6-50) U/L Alkaline Phosphatase 101 (38-126) U/L Total Protein 8.8 H (6.3-8.2) g/dL Albumin 4.7 (3.5-5.1) g/dL Lipase 54 (23-300) U/L Urine Color Dark yellow (Yellow) Urine Appearance Cloudy H (Clear) Urine pH 5.0 (5.0-9.0) Ur Specific [place] 1.019 (1.001-1.035) Urine Protein 1+ H (Negative) mg/dL Urine Glucose (UA) Negative (Negative) mg/dL Urine Ketones Trace H (Negative) mg/dL Ur Blood (Man) 2+ H (Negative) Urine Nitrate Positive H (Negative) Urine Bilirubin 1+ H (Negative) Urine Urobilinogen 1.0 (<2.0) mg/dL Leukocyte Esterase Rfl 3+ H (Negative) NOE/UL Urine RBC 0-2 (0-2) /hpf Urine WBC >100 H (0-3) /hpf Ur Squamous Epith Cells None seen (Few) /hpf Urine Bacteria 4+ H /hpf Urine Casts 3-5 <Savanna Dutton PA-C - Last Filed: 04/21/25 13:56> Lab Results 04/21/25 Range/Units 10:22 WBC 15.2 H (4.5-10.0) K/mm3 RBC 4.52 L (4.6-6.20) M/mm3 Hgb 12.8 L (14.0-18.0) g/dL Hct 39.5 L (42.0-52.0) % MCV 87.4 (80-100) fl MCH 28.3 (26-34) pg MCHC 32.4 (32-36) g/dl RDW 14.1 (11.5-14.5) % Plt Count 397 H (150-375) k/mm3 MPV 8.6 (7.4-10.4) fl Immature Gran % (Auto) 0.5 (0-0.5) % Neut % (Auto) 64.4 (45.5-73.1) % Lymph % (Auto) 21.3 (18.3-44.2) % [place] % (Auto) 12.9 H (2.6-8.5) % Eos % (Auto) 0.5 (0-4.4) % Baso % (Auto) 0.4 (0.2-1.2) % Lymph # (Auto) 3.24 H (0.9-3.2) K/mm3 [place] # (Auto) 2.0 H (0.1-0.6) K/mm3 Eos # (Auto) 0.1 (0-0.3) K/mm3 Baso # (Auto) 0.1 (0.0-0.1) K/mm3 Abs Immat Gran (auto) 0.08 H (0.00-0.031) K/mm3 Absolute Neuts (auto) 9.8 H (1.3-6.7) K/mm3 Absolute Nucleated RBC 0.000 (0.0-0.012) K/mm3 Nucleated RBC % 0.0 (0.0-0.2) % Sodium 134 L (137-145) mmol/L Potassium 4.1 (3.4-5.0) mmol/L Chloride 99 (98-107) mmol/L Carbon Dioxide 26 (22-30) mmol/L Anion Gap 9 (4-12) mmol/L BUN 7 L (9-20) mg/dL Creatinine 0.94 (0.7-1.3) mg/dL Estim Creat Clear Calc 89 ml/min Estimated GFR > 60 (59 - ) Glucose 109 (65-110) mg/dL Lactic Acid 0.7 (0.7-2.0) mmol/L Calcium 9.3 (8.4-10.2) mg/dL Magnesium 1.7 (1.6-2.3) mg/dL Total Bilirubin 0.8 (0.2-1.3) mg/dL AST 28 (17-59) U/L ALT 29 (6-50) U/L Alkaline Phosphatase 101 (38-126) U/L Total Protein 8.8 H (6.3-8.2) g/dL Albumin 4.7 (3.5-5.1) g/dL Lipase 54 (23-300) U/L Urine Color Dark yellow (Yellow) Urine Appearance Cloudy H (Clear) Urine pH 5.0 (5.0-9.0) Ur Specific [place] 1.019 (1.001-1.035) Urine Protein 1+ H (Negative) mg/dL Urine Glucose (UA) Negative (Negative) mg/dL Urine Ketones Trace H (Negative) mg/dL Ur Blood (Man) 2+ H (Negative) Urine Nitrate Positive H (Negative) Urine Bilirubin 1+ H (Negative) Urine Urobilinogen 1.0 (<2.0) mg/dL Leukocyte Esterase Rfl 3+ H (Negative) NOE/UL Urine RBC 0-2 (0-2) /hpf Urine WBC >100 H (0-3) /hpf Ur Squamous Epith Cells None seen (Few) /hpf Urine Bacteria 4+ H /hpf Urine Casts 3-5 <Joel Reddy MD - Last Filed: 04/21/25 19:17> Imaging Data Attestation: I personally reviewed and interpreted this imaging study as follows: <Savanna Dutton PA-C - Last Filed: 04/21/25 13:56> Radiologist's impression: ITS Impressions Abdomen/Pelvis CT 04/21/25 11:12 IMPRESSION: 1. Right kidney recently passed stone and/or pyelonephritis. <Savanna Dutton PA-C - Last Filed: 04/21/25 13:56> ITS Impressions Abdomen/Pelvis CT 04/21/25 11:12 IMPRESSION: 1. Right kidney recently passed stone and/or pyelonephritis. <Joel Reddy MD - Last Filed: 04/21/25 19:17> Discharge Plan Discharge Clinical Impression: Acute pyelonephritis UTI (urinary tract infection) Qualifiers: Urinary tract infection type: acute cystitis Hematuria presence: without hematuria Qualified Code(s): N30.00 - Acute cystitis without hematuria Sepsis Qualifiers: Sepsis type: sepsis due to unspecified organism Sepsis acute organ dysfunction status: unspecified Qualified Code(s): A41.9 - Sepsis, unspecified organism <Savanna Dutton PA-C - Last Filed: 04/21/25 13:56> Patient Disposition: Still a Patient <Savanna Dutton PA-C - Last Filed: 04/21/25 13:56> Condition: Stable <Savanna Dutton PA-C - Last Filed: 04/21/25 13:56>
[2025-04-21 10:32] LABS: Hematocrit 39.5 % (42.0-52.0); Hemoglobin 12.8 g/dL (14.0-18.0); Immature Granulocyte Percent A 0.5 % (0-0.5); Lymphocytes Absolute Auto 3.24 K/mm3 (0.9-3.2); Mean Corpuscular HGB Conc 32.4 g/dl (32-36); Mean Corpuscular Hemoglobin 28.3 pg (26-34); Mean Corpuscular Volume 87.4 fl (80-100); Nucleated Red Blood Cells Absolute Auto 0.000 K/mm3 (0.0-0.012); Nucleated Red Blood Cells Perc 0.0 % (0.0-0.2); Platelet Count Result 397 k/mm3 (150-375); Red Blood Count 4.52 M/mm3 (4.6-6.20); White Blood Count 15.2 K/mm3 (4.5-10.0)
[2025-04-21] MEDS: SODIUM CHLORIDE 0.9% IV 1,000 ML 999 ML IV CONT ×2 (10:38→12:11)
[2025-04-21 10:41] LABS: Add Urine Microscopic? YES; Appearance Urine Cloudy (Clear); Glucose Urine UA Negative (Negative); Leukocyte Esterase Ur 3+ LEU/UL (Negative); Nitrate Urine Positive (Negative); Specific Grav Ur 1.019 (1.001-1.035)
[2025-04-21 10:48] LABS: Alanine Aminotransferase 29 U/L (6-50); Albumin Level 4.7 g/dL (3.5-5.1); Alkaline Phosphatase 101 U/L (38-126); Anion Gap 9 mmol/L (4-12); Aspartate Amino Transferase 28 U/L (17-59); Bilirubin,Total 0.8 mg/dL (0.2-1.3); Blood Urea Nitrogen 7 mg/dL (9-20); Calcium 9.3 mg/dL (8.4-10.2); Carbon Dioxide 26 mmol/L (22-30); Chloride 99 mmol/L (98-107); Estimated CRCL calculation 89 ml/min; Estimated Glomerular Filt Rate > 60; Glucose 109 mg/dL (65-110); Lipase 54 U/L (23-300); Magnesium 1.7 mg/dL (1.6-2.3); Potassium 4.1 mmol/L (3.4-5.0); Sodium 134 mmol/L (137-145); Total Protein 8.8 g/dL (6.3-8.2)
[2025-04-21] MEDS: cefTRIAXone 1 GM in SODIUM CHLORIDE 0.9% IV 50 ML 100 ML IVPB (11:28)
[2025-04-21] MEDS: MAGNESIUM SULF 2 GM/WATER 50ML 2 GM/50 ML BAG IVPB (11:59)
[2025-04-21] MEDS: ONDANSETRON INJ 4 MG/2 ML VIAL IV PUSH (12:53)
[2025-04-21] MEDS: HYDROmorphone HCL INJ (*CRX) 1 MG/ML SYR 0.5 MG IV PUSH ×2 (12:53→17:25)
[2025-04-21] MEDS: SODIUM CHLORIDE 0.9% IV 1,000 ML 100 ML IV CONT (14:28)
--- NOTE | 2025-04-21 15:43 | WPCEDHO ---
ED Hand Off Checklist All vitals saved:yes IV Site documented:yes All med administrations documented:yes Triage Note Triage Note Pt to ED w/ reports of RIGHT 04/21/25 10:23 sided abd pain, cramping, states it is an 8/10 currently and feels like it is squeezing. Pt states he recently stopped drinking alcohol, last drink was approx 12 days ago. Pt states he does not have PMH of cirrhosis. Denies urinary sx's. Last BM today was normal. agree with triage note Allergies No Known Allergies Allergy (Verified 04/21/25 08:12) Active Medications including assessments/comments Sodium Chloride (Normal Saline Iv) 1,000 mls @ 100 mls/hr IV CONT .Q10H JOSEPH Last Admin: 04/21/25 14:28 Dose: 100 mls/hr Documented By: ANT Infusion/Titration Document 04/21/25 14:28 ANT (Rec: 04/21/25 14:28 ANT [id number]) Intake IV Site Peripheral Access Left Antecubital Container Volume 1,000 Waste Amount 0 Dosing Infusion Rate 100 Cumulative Dose Not Applicable Increase/Decrease Started Elapsed Time Elapsed Time ( 0m minutes) Administered/Completed Medications Discontinued Medications Hydromorphone HCl (Hydromorphone Hcl Inj (*Crx) 1 Mg/Ml Syr) 0.5 mg IV PUSH ONCE STA Stop: 04/21/25 12:44 Last Admin: 04/21/25 12:53 Dose: 0.5 mg Documented By: ANT Sodium Chloride (Normal Saline Iv) 1,000 mls @ 999 mls/hr IV CONT .Q1H1M STA Stop: 04/21/25 11:00 Last Infusion: 04/21/25 11:57 Dose: Infused Documented By: Admin: 04/21/25 10:38 Dose: 999 mls/hr Documented By: ANT Magnesium Sulfate (Magnesium Sulf 2 Gm/Water 50ml) 2 gm in 50 mls @ 50 mls/hr IVPB ONCE ONE Stop: 04/21/25 11:55 Last Infusion: 04/21/25 13:00 Dose: Infused Documented By: Admin: 04/21/25 11:59 Dose: 50 mls/hr Documented By: ANT Co-signed By: MLI Ceftriaxone Sodium 1 gm/ (Sodium Chloride) 50 mls @ 100 mls/hr IVPB ONCE STA Stop: 04/21/25 11:48 Last Infusion: 04/21/25 11:57 Dose: Infused Documented By: Admin: 04/21/25 11:28 Dose: 100 mls/hr Documented By: ANT Sodium Chloride (Normal Saline Iv) 1,000 mls @ 999 mls/hr IV CONT .Q1H1M STA Stop: 04/21/25 12:43 Last Infusion: 04/21/25 13:01 Dose: Infused Documented By: Admin: 04/21/25 12:11 Dose: 999 mls/hr Documented By: ANT Ondansetron HCl (Ondansetron Inj 4 Mg/2 Ml Vial) 4 mg IV PUSH ONCE STA Stop: 04/21/25 12:44 Last Admin: 04/21/25 12:53 Dose: 4 mg Documented By: ANT Interventions/Assessments IV / Saline Lock, Insert Start: 04/21/25 08:12 Freq: STAT Status: Active Protocol: Document 04/21/25 10:25 ANT (Rec: 04/21/25 10:26 ANT [id number]) IV Assessment Peripheral Access Left Antecubital IV Catheter Access Initiated IV Insertion Date 04/21/25 IV Insertion Time 10:26 Catheter Gauge 20 IV Site Assessment WNL IV Care and WNL Maintenance PA: Gastrointestinal Assessment Start: 04/21/25 08:11 Freq: Status: Active Protocol: Document 04/21/25 10:24 ANT (Rec: 04/21/25 10:25 ANT [id number]) GI Assessment Gastrointestinal Nausea,Pain Symptoms Description Distended,Tender All Quadrants Bowel Sounds Active Date of Last Bowel 02/18/25 Movement Last Vital Signs Temperature 98.1 F 04/21/25 09:02 Pulse Rate 115 H 04/21/25 15:40 Respiratory Rate 16 04/21/25 15:40 Pulse Oximetry 97 04/21/25 15:40 Blood Pressure 118/66 04/21/25 15:40 Blood Pressure Mean 83 04/21/25 15:40 Blood Pressure Position Sitting 04/21/25 09:02 Oxygen Delivery Room Air 04/21/25 09:02 Weight 96.7 kg 04/21/25 10:23 Last Result - Abnormals Only WBC 15.2 K/mm3 (4.5-10.0) H 04/21/25 10:22 RBC 4.52 M/mm3 (4.6-6.20) L 04/21/25 10:22 Hgb 12.8 g/dL (14.0-18.0) L 04/21/25 10:22 Hct 39.5 % (42.0-52.0) L 04/21/25 10:22 Plt Count 397 k/mm3 (150-375) H 04/21/25 10:22 [place] % (Auto) 12.9 % (2.6-8.5) H 04/21/25 10:22 Lymph # (Auto) 3.24 K/mm3 (0.9-3.2) H 04/21/25 10:22 [place] # (Auto) 2.0 K/mm3 (0.1-0.6) H 04/21/25 10:22 Abs Immat Gran (auto) 0.08 K/mm3 (0.00-0.031) H 04/21/25 10:22 Absolute Neuts (auto) 9.8 K/mm3 (1.3-6.7) H 04/21/25 10:22 Sodium 134 mmol/L (137-145) L 04/21/25 10:22 BUN 7 mg/dL (9-20) L 04/21/25 10:22 Total Protein 8.8 g/dL (6.3-8.2) H 04/21/25 10:22 Urine Appearance Cloudy (Clear) H 04/21/25 10:22 Urine Protein 1+ mg/dL (Negative) H 04/21/25 10:22 Urine Ketones Trace mg/dL (Negative) H 04/21/25 10:22 Ur Blood (Man) 2+ (Negative) H 04/21/25 10:22 Urine Nitrate Positive (Negative) H 04/21/25 10:22 Urine Bilirubin 1+ (Negative) H 04/21/25 10:22 Leukocyte Esterase Rfl 3+ NOE/UL (Negative) H 04/21/25 10:22 Urine WBC >100 /hpf (0-3) H 04/21/25 10:22 Urine Bacteria 4+ /hpf H 04/21/25 10:22 Most Recent Suicide Severity Rating Suicide Severity Rating NO RISK INDICATED 04/21/25 10:23
--- NOTE | 2025-04-21 15:57 | PM.IMHP2 ---
H&P: HPI History of Present Illness Date/Time: 04/21/25 15:57 Chief Complaint: Abdominal pain Narrative: 49 years old male came to emergency room complained of having right upper quadrant abdominal pain is radiating to the groin area going on for the last few hours. According to the patient pain started at work this morning and was getting worse with the passage of time. However patient denies any shortness of breath or chest pain.. No nausea vomiting. In the ER patient was diagnosed with pyelonephritis. Patient was started on IV antibiotic after culture were done. At present patient is lying comfortably in the bed. Denies any shortness of breath or chest pain. Abdominal pain is also better. No nausea vomiting. Review of Systems Review of Systems: All systems reviewed & are unremarkable except as noted in HPI and below (the history and physical exam.) [facility] Social History Social History Smoking packs per day: 0.25 Smoking cigarettes per day: 5.0 Years smoked: 30 Smoking pack-years: 7.50 Smoking status: Current every day smoker Tobacco type: cigarettes Alcohol intake: never Substance use: never Lack of Transportation: No Lack of Food: Never True Current Housing: I Do Not Have Housing Concerned About Future Housing: No Difficulty Paying Gas/Electric Bills: YES Difficulty Paying for Meds: No Currently Unemployed: No Education: High School Diploma/GED Difficulty w/ Childcare or Family Care: No Spiritual care concerns: No Meds Home Medications and Allergies Home Medications ?Medication ?Instructions ?Recorded ?Confirmed ?Type albuterol sulfate 90 mcg/actuation 1 inh inhalation DAILY 04/21/25 04/21/25 History aerosol inhaler allopurinol 100 mg tablet 100 mg PO DAILY 04/21/25 04/21/25 History atorvastatin 20 mg tablet 20 mg PO DAILY 04/21/25 04/21/25 History bictegravir 50 mg-emtricitabine 1 tablet PO DAILY 04/21/25 04/21/25 History 200 mg-tenofovir alafenam 25 mg tablet (Biktarvy) cetirizine 10 mg tablet 10 mg PO DAILY 04/21/25 04/21/25 History duloxetine 60 mg capsule,delayed 60 mg PO DAILY 04/21/25 04/21/25 History release gabapentin 300 mg capsule 300 mg PO HS 04/21/25 04/21/25 History meloxicam 15 mg tablet 7.5 mg PO BID 04/21/25 04/21/25 History metformin 500 mg tablet 500 mg PO BID 04/21/25 04/21/25 History rosuvastatin 10 mg tablet 10 mg PO DAILY 04/21/25 04/21/25 History Allergies Allergy/AdvReac Type Severity Reaction Status Date / Time No Known Allergies Allergy Verified 04/21/25 17:39 Vital Signs Vital Signs - 24 hr 04/21/25 09:02 04/21/25 12:21 04/21/25 12:30 Temperature 36.7 C Pulse Rate 115 H 113 H 104 H Respiratory Rate 19 29 H 23 H Blood Pressure 92/62 L 114/95 H Pulse Oximetry 97 98 97 Oxygen Delivery Room Air 04/21/25 12:32 04/21/25 12:46 04/21/25 13:01 Temperature Pulse Rate 103 H 108 H Respiratory Rate 23 H 22 H Blood Pressure 119/65 119/81 122/83 Pulse Oximetry 97 97 97 Oxygen Delivery 04/21/25 15:40 Temperature Pulse Rate 115 H Respiratory Rate 16 Blood Pressure 118/66 Pulse Oximetry 97 Oxygen Delivery Exam Narrative: GENERAL: Well appearing, well-nourished, non-toxic, in no acute distress. HEAD: Normocephalic, atraumatic. RESPIRATORY: Airway patent, respirations nonlabored. Clear to auscultation bilaterally, no rales, rhonchi, wheezing. CARDIOVASCULAR: Mildly tachycardic, regular rhythm without murmurs, rubs, or gallops. ABDOMINAL: Soft, tenderness to palpation epigastric region, right upper quadrant, no rebound, nondistended. Normoactive BS. MUSCULOSKELETAL: Moves all extremities. No gross deformities. SKIN: Warm, dry, normal color. NEURO: A&O X3. Speech clear. Cranial nerves II-XII grossly intact. Steady gait. No ataxic movements. PSYCHIATRIC: Appropriate mood and affect. Normal interaction. Results Labs Labs: Short CBC 04/21/25 Range/Units 10:22 WBC 15.2 H (4.5-10.0) K/mm3 Hgb 12.8 L (14.0-18.0) g/dL Hct 39.5 L (42.0-52.0) % Plt Count 397 H (150-375) k/mm3 BMP 12/24/25 10:22 Sodium 134 L Potassium 4.1 Chloride 99 Carbon Dioxide 26 BUN 7 L Creatinine 0.94 Glucose 109 Calcium 9.3 Liver Function 04/21/25 Range/Units 10:22 Total Bilirubin 0.8 (0.2-1.3) mg/dL AST 28 (17-59) U/L ALT 29 (6-50) U/L Alkaline Phosphatase 101 (38-126) U/L Albumin 4.7 (3.5-5.1) g/dL Urine 04/21/25 Range/Units 10:22 Urine Color Dark yellow (Yellow) Urine Appearance Cloudy H (Clear) Urine pH 5.0 (5.0-9.0) Ur Specific [place] 1.019 (1.001-1.035) Urine Protein 1+ H (Negative) mg/dL Urine Glucose (UA) Negative (Negative) mg/dL Assessment and Plan Assessment and plan (1) Acute pyelonephritis: Code(s): N10 - Acute pyelonephritis Status: Acute Assessment and Plan: IV fluids, culture and IV antibiotics. Pain control as needed. Plan Patient is admitted as a full admission on the medical floor. Code status full. DVT prophylaxis Lovenox.
[2025-04-22] VITALS (10 sets, daily range): BP systolic 103–129; BP diastolic 61–91; PULSE 94–109; RESP 14–18; TEMP 36.3–36.9; O2SAT 94–96
[2025-04-22] MEDS: SODIUM CHLORIDE 0.9% IV 1,000 ML 100 ML IV CONT ×2 (03:43→14:17)
[2025-04-22] MEDS: HYDROmorphone HCL INJ (*CRX) 1 MG/ML SYR 0.5 MG IV PUSH ×4 (03:44→21:29)
[2025-04-22 06:00] LABS: Hematocrit 37.4 % (42.0-52.0); Hemoglobin 12.0 g/dL (14.0-18.0); Immature Granulocyte Percent A 0.5 % (0-0.5); Lymphocytes Absolute Auto 2.60 K/mm3 (0.9-3.2); Mean Corpuscular HGB Conc 32.1 g/dl (32-36); Mean Corpuscular Hemoglobin 28.4 pg (26-34); Mean Corpuscular Volume 88.6 fl (80-100); Nucleated Red Blood Cells Absolute Auto 0.000 K/mm3 (0.0-0.012); Nucleated Red Blood Cells Perc 0.0 % (0.0-0.2); Platelet Count Result 394 k/mm3 (150-375); Red Blood Count 4.22 M/mm3 (4.6-6.20); White Blood Count 12.9 K/mm3 (4.5-10.0)
--- NOTE | 2025-04-22 09:17 | P.PNIM_ITS ---
Assessment and Plan Assessment and Plan (1) Acute pyelonephritis: Code(s): N10 - Acute pyelonephritis Status: Acute Assessment and Plan: IV fluids, culture and IV antibiotics. Pain control as needed. Plan Patient is admitted as a full admission on the medical floor. Code status full. DVT prophylaxis Lovenox. Subjective Date/time seen: 04/22/25 09:17 Interval history: Patient was seen during the morning today. Patient is feeling slightly better. Shortness of breath or chest pain. Abdominal pain has decreased. Review of Systems Review of Systems: All systems reviewed & are unremarkable except as noted in HPI and below (the history and physical exam.) Exam Narrative: GENERAL: Well appearing, well-nourished, non-toxic, in no acute distress. HEAD: Normocephalic, atraumatic. RESPIRATORY: Airway patent, respirations nonlabored. Clear to auscultation bilaterally, no rales, rhonchi, wheezing. CARDIOVASCULAR: Mildly tachycardic, regular rhythm without murmurs, rubs, or gallops. ABDOMINAL: Soft, tenderness to palpation epigastric region, right upper quadrant, no rebound, nondistended. Normoactive BS. MUSCULOSKELETAL: Moves all extremities. No gross deformities. SKIN: Warm, dry, normal color. NEURO: A&O X3. Speech clear. Cranial nerves II-XII grossly intact. Steady gait. No ataxic movements. PSYCHIATRIC: Appropriate mood and affect. Normal interaction. Objective Data Vital Signs Vital Signs: Vital Signs - 24 hr 04/21/25 12:21 04/21/25 12:30 04/21/25 12:32 Temperature Pulse Rate 113 H 104 H 103 H Respiratory Rate 29 H 23 H 23 H Blood Pressure 114/95 H 119/65 Pulse Oximetry 98 97 97 Oxygen Delivery 04/21/25 12:46 04/21/25 13:01 04/21/25 15:40 Temperature Pulse Rate 108 H 115 H Respiratory Rate 22 H 16 Blood Pressure 119/81 122/83 118/66 Pulse Oximetry 97 97 97 Oxygen Delivery 04/21/25 17:21 04/21/25 20:00 04/21/25 20:00 Temperature Pulse Rate 107 H Respiratory Rate Blood Pressure Pulse Oximetry Oxygen Delivery Room Air Room Air 04/21/25 21:53 04/22/25 00:00 04/22/25 04:00 Temperature 36.7 C Pulse Rate 108 H 109 H 103 H Respiratory Rate 18 Blood Pressure 122/77 Pulse Oximetry 97 Oxygen Delivery 04/22/25 04:26 Temperature 36.5 C Pulse Rate 104 H Respiratory Rate 14 Blood Pressure 129/91 H Pulse Oximetry 95 Oxygen Delivery Intake/Output Intake/Output: Intake & Output 04/19/25 04/20/25 04/21/25 04/22/25 23:59 23:59 23:59 23:59 Intake Total 2099 1500 Balance 2099 1499 Meds/Results Medications: Active Medications Generic Name Dose Route Start Last Admin Trade Name Freq PRN Reason Stop Dose Admin Acetaminophen 650 mg 04/21/25 13:27 Acetaminophen 325 Mg Tablet PO Q4H PRN Mild Pain (1-3) or Fever Albuterol 1 puff 04/23/25 09:00 Albuterol Sulfate (*Sp) Aerosol 1 Puff INHALATION DAILY [facility] Allopurinol 100 mg 04/23/25 09:00 Allopurinol 100 Mg Tablet PO DAILY [facility] Atorvastatin Calcium 20 mg 04/23/25 09:00 Atorvastatin 20 Mg Tablet PO DAILY [facility] Duloxetine HCl 60 mg 04/23/25 09:00 Duloxetine Hcl 60 Mg Capsule.Dr PO DAILY [facility] Enoxaparin Sodium 40 mg 04/22/25 09:00 Enoxaparin 40 Mg/0.4 Ml Syringe SUB-Q DAILY [facility] Gabapentin 300 mg 04/22/25 21:00 Gabapentin 300 Mg Capsule PO HS [facility] Hydromorphone HCl 0.5 mg 04/21/25 13:27 04/22/25 03:44 Hydromorphone Hcl Inj (*Crx) 1 Mg/Ml Syr IV PUSH 0.5 mg Q4H PRN Administration Pain Rated 7-10 Sodium Chloride 1,000 mls @ 100 mls/hr 04/21/25 13:30 04/22/25 03:43 Normal Saline Iv IV CONT 100 mls/hr .Q10H JOSEPH Administration Ceftriaxone Sodium 1 gm/ 50 mls @ 100 mls/hr 04/22/25 09:00 Sodium Chloride IVPB Q24H JOSEPH Metformin HCl 500 mg 04/22/25 17:00 Metformin Hcl 500 Mg Tablet PO BID JOSEPH Non-Formulary Medication 1 tablet 04/23/25 09:00 Vqhvkctks-Gjakrhhg-Gvqrgpp Ala [Biktarvy] PO 05/23/25 08:59 DAILY JOSEPH Non-Formulary Medication 10 mg 04/23/25 09:00 Cetirizine PO 05/23/25 08:59 DAILY [facility] Non-Formulary Medication 7.5 mg 04/22/25 17:00 Meloxicam PO 05/22/25 16:59 BID [facility] Ondansetron HCl 4 mg 04/21/25 13:27 Ondansetron Inj 4 Mg/2 Ml Vial IV PUSH Q4H PRN Nausea Rosuvastatin Calcium 10 mg 04/23/25 09:00 Rosuvastatin 10 Mg Tablet PO DAILY [facility] Radiology Results: ITS Impressions Abdomen/Pelvis CT 04/21/25 11:12 IMPRESSION: 1. Right kidney recently passed stone and/or pyelonephritis. Labs Labs: Laboratory Results - last 24 hr 04/21/25 04/22/25 10:22 05:39 WBC 15.2 H 12.9 H RBC 4.52 L 4.22 L Hgb 12.8 L 12.0 L Hct 39.5 L 37.4 L MCV 87.4 88.6 MCH 28.3 28.4 MCHC 32.4 32.1 RDW 14.1 14.1 Plt Count 397 H 394 H MPV 8.6 8.7 Immature Gran % (Auto) 0.5 0.5 Neut % (Auto) 64.4 61.4 Lymph % (Auto) 21.3 20.2 [place] % (Auto) 12.9 H 17.0 H Eos % (Auto) 0.5 0.5 Baso % (Auto) 0.4 0.4 Lymph # (Auto) 3.24 H 2.60 [place] # (Auto) 2.0 H 2.2 H Eos # (Auto) 0.1 0.1 Baso # (Auto) 0.1 0.1 Abs Immat Gran (auto) 0.08 H 0.06 H Absolute Neuts (auto) 9.8 H 7.9 H Absolute Nucleated RBC 0.000 0.000 Nucleated RBC % 0.0 0.0 Sodium 134 L Potassium 4.1 Chloride 99 Carbon Dioxide 26 Anion Gap 9 BUN 7 L Creatinine 0.94 Estim Creat Clear Calc 89 Estimated GFR > 60 Glucose 109 Lactic Acid 0.7 Calcium 9.3 Magnesium 1.7 Total Bilirubin 0.8 AST 28 ALT 29 Alkaline Phosphatase 101 Total Protein 8.8 H Albumin 4.7 Lipase 54 Urine Color Dark yellow Urine Appearance Cloudy H Urine pH 5.0 Ur Specific [place] 1.019 Urine Protein 1+ H Urine Glucose (UA) Negative Urine Ketones Trace H Ur Blood (Man) 2+ H Urine Nitrate Positive H Urine Bilirubin 1+ H Urine Urobilinogen 1.0 Leukocyte Esterase Rfl 3+ H Urine RBC 0-2 Urine WBC >100 H Ur Squamous Epith Cells None seen Urine Bacteria 4+ H Urine Casts 3-5
[2025-04-22] MEDS: cefTRIAXone 1 GM in SODIUM CHLORIDE 0.9% IV 50 ML 100 ML IVPB (09:22)
[2025-04-22] MEDS: ENOXAPARIN 40 MG/0.4 ML SYRINGE SUB-Q (09:23)
[2025-04-22] MEDS: ROSUVASTATIN 10 MG TABLET PO (09:32)
[2025-04-22] MEDS: MELOXICAM 7.5 MG TABLET PO ×2 (09:32→16:53)
[2025-04-22] MEDS: DULoxetine HCL 60 MG CAPSULE.DR PO (09:32)
[2025-04-22] MEDS: ATORVASTATIN 20 MG TABLET PO (09:32)
[2025-04-22] MEDS: LORATADINE 10 MG TABLET PO (09:32)
[2025-04-22] MEDS: CYCLOBENZAPRINE HCL 10 MG TABLET PO ×2 (10:33→21:29)
[2025-04-22] MEDS: ALBUTEROL SULFATE (*SP) AEROSOL 1 PUFF INHALATION (14:31)
[2025-04-22] MEDS: GABAPENTIN 300 MG CAPSULE PO (21:04)
[2025-04-23] VITALS (10 sets, daily range): BP systolic 120–134; BP diastolic 83–87; PULSE 79–92; RESP 18–20; TEMP 36.7–37; O2SAT 94–97
[2025-04-23] MEDS: SODIUM CHLORIDE 0.9% IV 1,000 ML 100 ML IV CONT ×2 (00:17→16:21)
[2025-04-23 05:50] LABS: Hematocrit 37.1 % (42.0-52.0); Hemoglobin 11.7 g/dL (14.0-18.0); Immature Granulocyte Percent A 0.4 % (0-0.5); Lymphocytes Absolute Auto 1.86 K/mm3 (0.9-3.2); Mean Corpuscular HGB Conc 31.5 g/dl (32-36); Mean Corpuscular Hemoglobin 28.3 pg (26-34); Mean Corpuscular Volume 89.6 fl (80-100); Nucleated Red Blood Cells Absolute Auto 0.000 K/mm3 (0.0-0.012); Nucleated Red Blood Cells Perc 0.0 % (0.0-0.2); Platelet Count Result 400 k/mm3 (150-375); Red Blood Count 4.14 M/mm3 (4.6-6.20); White Blood Count 8.4 K/mm3 (4.5-10.0)
[2025-04-23 06:16] LABS: Alanine Aminotransferase 25 U/L (6-50); Albumin Level 4.1 g/dL (3.5-5.1); Alkaline Phosphatase 90 U/L (38-126); Anion Gap 9 mmol/L (4-12); Aspartate Amino Transferase 29 U/L (17-59); Bilirubin,Total 0.6 mg/dL (0.2-1.3); Blood Urea Nitrogen 6 mg/dL (9-20); Calcium 9.1 mg/dL (8.4-10.2); Carbon Dioxide 22 mmol/L (22-30); Chloride 103 mmol/L (98-107); Estimated CRCL calculation 116 ml/min; Estimated Glomerular Filt Rate > 60; Glucose 115 mg/dL (65-110); Potassium 4.5 mmol/L (3.4-5.0); Sodium 134 mmol/L (137-145); Total Protein 7.7 g/dL (6.3-8.2)
[2025-04-23 06:20] LABS: Schistocytes None Seen
--- NOTE | 2025-04-23 08:15 | PM.IMPN2 ---
Assessment and Plan Assessment and Plan (1) Sepsis: Qualifiers: Sepsis acute organ dysfunction status: unspecified Sepsis type: sepsis due to unspecified organism Qualified Code(s): A41.9 - Sepsis, unspecified organism Code(s): A41.9 - Sepsis, unspecified organism Status: Acute Assessment and Plan: Meets SIRS criteria: tachycardia, leukocytosis - lactic acid WNL - Received IV sepsis fluids - suspected source: pyelonephritis - blood cultures were not obtained on admission, patient improving with stable vitals and WBC WNL. Urine growing gram negative which is reassuring. - UA concerning for infection, UC growing gram negative bacilli - Abdomen/pelvis CT: right kidney recently passed stone and/or pyelonephritis Resolved. WBC WNL. Vitals stable. (2) Acute pyelonephritis: Code(s): N10 - Acute pyelonephritis Status: Acute Assessment and Plan: - UA concerning for infection - UC obtained on 04/21: gram negative bacilli - No previous micro to be reviewed - started on Rocephin on 04/22 Denies UTI like symptoms. (3) Diabetes: Code(s): E11.9 - Type 2 diabetes mellitus without complications Status: Acute Assessment and Plan: - hypoglycemia protocol - POC blood glucose ACHS - remains on home metformin Medical Record Review I have reviewed the following patient records and this information was taken into consideration when formulating the assessment and plan.: previous labs Time Spent With Patient Time with patient: 25 - 35 minutes Subjective Date/time seen: 04/23/25 08:15 Interval history: Patient is pleasant lying comfortably in bed. He is endorsing pain to his right thigh that extends to his knee and states that this has been ongoing for over a month. He states that his primary care provider is following up implants get an MRI in the outpatient setting with his next appointment being early April. He is also getting physical therapy with his appointment pain on 04/27. He denies any recent trauma. He has no other complaints denying chest pain, palpitations, shortness a breath, nausea/vomiting, abdominal pain. Review of Systems Review of Systems: All systems reviewed & are unremarkable except as noted in HPI and below Exam Narrative: AF HR 79 RR 18 SPO2 94 BP 134/85 General: male in no acute respiratory distress who is nontoxic appearing, lying semi recumbent in bed. HEENT: Extraocular movement intact. Sclera clear and anicteric. No facial asymmetry. Chest: Lungs are clear to auscultation bilaterally. No wheezes or crackles. CV: Heart was regular rate and rhythm. Abd: Abdomen was soft. Nontender. Nondistended. Positive bowel sounds. Ext: No clubbing, cyanosis, or edema. DP pulses bilaterally. Moving all extremities with full ROM. Neuro: Patient is alert. Speech is clear. Objective Data Vital Signs Vital Signs: Vital Signs - 24 hr 04/22/25 12:00 04/22/25 14:00 04/22/25 14:33 Temperature 97.4 F L Pulse Rate 101 H 98 101 H Respiratory Rate 18 17 Blood Pressure 103/61 Pulse Oximetry 94 Oxygen Delivery 04/22/25 16:00 04/22/25 20:00 04/22/25 20:00 Temperature Pulse Rate 95 94 95 Respiratory Rate 16 Blood Pressure Pulse Oximetry 96 Oxygen Delivery Room Air 04/22/25 21:44 04/23/25 00:00 04/23/25 04:00 Temperature 98.5 F Pulse Rate 94 92 88 Respiratory Rate 16 Blood Pressure 117/82 Pulse Oximetry 96 Oxygen Delivery 04/23/25 06:00 Temperature 98.1 F Pulse Rate 79 Respiratory Rate 18 Blood Pressure 134/85 Pulse Oximetry 94 Oxygen Delivery Intake/Output Intake/Output: Intake & Output 04/20/25 04/21/25 04/22/25 04/23/25 23:59 23:59 23:59 23:59 Intake Total 2100 3650 1400 Output Total 500 800 Balance 2100 3150 600 Meds/Results Medications: Active Medications Generic Name Dose Route Start Last Admin Trade Name Freq PRN Reason Stop Dose Admin Acetaminophen 650 mg 04/21/25 13:27 Acetaminophen 325 Mg Tablet PO Q4H PRN Mild Pain (1-3) or Fever Albuterol 1 puff 04/22/25 09:25 04/22/25 14:31 Albuterol Sulfate (*Sp) Aerosol 1 Puff INHALATION 1 puff DAILYRT JOSEPH Administration Allopurinol 100 mg 04/22/25 09:00 04/22/25 09:32 Allopurinol 100 Mg Tablet PO 100 mg DAILY JOSEPH Administration Atorvastatin Calcium 20 mg 04/22/25 09:00 04/22/25 09:32 Atorvastatin 20 Mg Tablet PO 20 mg DAILY JOSEPH Administration Cyclobenzaprine HCl 10 mg 04/22/25 10:28 04/22/25 21:29 Cyclobenzaprine Hcl 10 Mg Tablet PO 10 mg Q6H PRN Administration Muscle Spasm Duloxetine HCl 60 mg 04/22/25 09:00 04/22/25 09:32 Duloxetine Hcl 60 Mg Capsule.Dr PO 60 mg DAILY JOSEPH Administration Enoxaparin Sodium 40 mg 04/22/25 09:00 04/22/25 09:23 Enoxaparin 40 Mg/0.4 Ml Syringe SUB-Q 40 mg DAILY JOSEPH Administration Gabapentin 300 mg 04/22/25 21:00 04/22/25 21:04 Gabapentin 300 Mg Capsule PO 300 mg HS JOSEPH Administration Hydromorphone HCl 0.5 mg 04/21/25 13:27 04/22/25 21:29 Hydromorphone Hcl Inj (*Crx) 1 Mg/Ml Syr IV PUSH 0.5 mg Q4H PRN Administration Pain Rated 7-10 Sodium Chloride 1,000 mls @ 100 mls/hr 04/21/25 13:30 04/23/25 00:17 Normal Saline Iv IV CONT 100 mls/hr .Q10H JOSEPH Administration Ceftriaxone Sodium 1 gm/ 50 mls @ 100 mls/hr 04/22/25 09:00 04/22/25 09:22 Sodium Chloride IVPB 100 mls/hr Q24H JOSEPH Administration Loratadine 10 mg 04/22/25 09:00 04/22/25 09:32 Loratadine 10 Mg Tablet PO 10 mg QAM JOSEPH Administration Meloxicam 7.5 mg 04/22/25 09:00 04/22/25 16:53 Meloxicam 7.5 Mg Tablet PO 7.5 mg BID JOSEPH Administration Metformin HCl 500 mg 04/22/25 09:00 04/22/25 16:53 Metformin Hcl 500 Mg Tablet PO 500 mg BIDWM JOSEPH Administration Bictegrav-Emtricit- 1 tablet 04/22/25 09:00 04/22/25 10:05 Tenofov Ala [ PO 05/22/25 08:59 1 tablet Biktarvy] 50-200-25 DAILY JOSEPH Administration Mg Tablet Ondansetron HCl 4 mg 04/21/25 13:27 Ondansetron Inj 4 Mg/2 Ml Vial IV PUSH Q4H PRN Nausea Rosuvastatin Calcium 10 mg 04/22/25 09:00 04/22/25 09:32 Rosuvastatin 10 Mg Tablet PO 10 mg DAILY JOSEPH Administration Radiology Results: ITS Impressions Abdomen/Pelvis CT 04/21/25 11:12 IMPRESSION: 1. Right kidney recently passed stone and/or pyelonephritis. Labs Labs: Laboratory Results - last 24 hr 04/22/25 04/23/25 20:25 05:45 WBC 8.4 RBC 4.14 L Hgb 11.7 L Hct 37.1 L MCV 89.6 MCH 28.3 MCHC 31.5 L RDW 13.6 Plt Count 400 H MPV 8.8 Immature Gran % (Auto) 0.4 Neut % (Auto) 60.9 Lymph % (Auto) 22.1 [place] % (Auto) 14.4 H Eos % (Auto) 1.8 Baso % (Auto) 0.4 Lymph # (Auto) 1.86 [place] # (Auto) 1.2 H Eos # (Auto) 0.2 Baso # (Auto) 0.0 Abs Immat Gran (auto) 0.03 Absolute Neuts (auto) 5.1 Absolute Nucleated RBC 0.000 Band Neutrophils % Not Reportable Nucleated RBC % 0.0 Atypical Lymphocytes Present Platelet Estimate Increased Schistocytes None seen Sodium 134 L Potassium 4.5 Chloride 103 Carbon Dioxide 22 Anion Gap 9 BUN 6 L Creatinine 0.71 Estim Creat Clear Calc 116 Estimated GFR > 60 Glucose 115 H POC Capillary Glucose 174 H Calcium 9.1 Total Bilirubin 0.6 AST 29 ALT 25 Alkaline Phosphatase 90 Total Protein 7.7 Albumin 4.1 Quality VTE Prophylaxis VTE prophylaxis: pharmacologic ordered
[2025-04-23] MEDS: ALBUTEROL SULFATE (*SP) AEROSOL 1 PUFF INHALATION (09:01)
[2025-04-23] MEDS: CYCLOBENZAPRINE HCL 10 MG TABLET PO ×2 (09:50→16:21)
[2025-04-23] MEDS: ROSUVASTATIN 10 MG TABLET PO (09:50)
[2025-04-23] MEDS: DULoxetine HCL 60 MG CAPSULE.DR PO (09:50)
[2025-04-23] MEDS: ATORVASTATIN 20 MG TABLET PO (09:50)
[2025-04-23] MEDS: ENOXAPARIN 40 MG/0.4 ML SYRINGE SUB-Q (09:50)
[2025-04-23] MEDS: MELOXICAM 7.5 MG TABLET PO ×2 (09:50→16:21)
[2025-04-23] MEDS: LORATADINE 10 MG TABLET PO (09:51)
[2025-04-23] MEDS: ACETAMINOPHEN 325 MG TABLET 650 MG PO ×2 (09:51→16:21)
[2025-04-23] MEDS: cefTRIAXone 1 GM in SODIUM CHLORIDE 0.9% IV 50 ML 100 ML IVPB (09:52)
[2025-04-23] MEDS: GABAPENTIN 300 MG CAPSULE PO (20:47)
[2025-04-23] MEDS: HYDROmorphone HCL INJ (*CRX) 1 MG/ML SYR 0.5 MG IV PUSH (20:54)
[2025-04-24] VITALS: PULSE 89
[2025-04-24 04:00] VITALS: PULSE 90
[2025-04-24] MEDS: SODIUM CHLORIDE 0.9% IV 1,000 ML 100 ML IV CONT ×2 (05:28→05:29)
[2025-04-24 06:00] VITALS: BP 119/75; PULSE 90; RESP 18; TEMP 36.7; O2SAT 97
[2025-04-24 08:00] VITALS: PULSE 84
[2025-04-24] MEDS: DULoxetine HCL 60 MG CAPSULE.DR PO (08:59)
[2025-04-24] MEDS: CYCLOBENZAPRINE HCL 10 MG TABLET PO (08:59)
[2025-04-24] MEDS: ACETAMINOPHEN 325 MG TABLET 650 MG PO (08:59)
[2025-04-24] MEDS: ATORVASTATIN 20 MG TABLET PO (08:59)
[2025-04-24] MEDS: MELOXICAM 7.5 MG TABLET PO (08:59)
[2025-04-24] MEDS: LORATADINE 10 MG TABLET PO (08:59)
[2025-04-24] MEDS: ROSUVASTATIN 10 MG TABLET PO (08:59)
[2025-04-24] MEDS: cefTRIAXone 1 GM in SODIUM CHLORIDE 0.9% IV 50 ML 100 ML IVPB (08:59)
[2025-04-24] MEDS: ENOXAPARIN 40 MG/0.4 ML SYRINGE SUB-Q (09:00)
[2025-04-24 12:00] VITALS: PULSE 105
--- NOTE | 2025-04-24 12:31 | P.DS_ITS ---
DS: Admitting Diagnosis Discharge Date 04/24/2025 Admitting Diagnosis sepsis acute pyelonephritis diabetes DS: Discharge Diagnosis Discharge Diagnosis (1) Sepsis: Qualifiers: Sepsis acute organ dysfunction status: unspecified Sepsis type: sepsis due to unspecified organism Qualified Code(s): A41.9 - Sepsis, unspecified organism Code(s): A41.9 - Sepsis, unspecified organism Status: Acute (2) Acute pyelonephritis: Code(s): N10 - Acute pyelonephritis Status: Acute (3) Diabetes: Code(s): E11.9 - Type 2 diabetes mellitus without complications Status: Acute DS: Summary Hospital Course Reason for hospitalization: sepsis acute pyelonephritis diabetes Hospital Course: 49-year-old male who presented to the emergency department on 04/21/25 with acute right upper quadrant abdominal pain radiating to the groin. Initial evaluation revealed leukocytosis, tachycardia, hypotension, and urinalysis concerning for infection. CT abdomen/pelvis demonstrated findings consistent with a recently passed right renal stone and/or acute pyelonephritis. He met SIRS criteria and was treated for sepsis secondary to pyelonephritis with prompt IV fluids and empiric IV ceftriaxone after cultures were obtained. Lactic acid remained within normal limits, and renal function was preserved throughout hospitalization. Urine culture grew ecoli with resistance to bactrim, and the patient showed rapid clinical improvement with normalization of vital signs and resolution of leukocytosis. Abdominal pain improved and ultimately resolved, and he remained afebrile and hemodynamically stable. Patient transitioned to oral antibiotics on discharge to complete the course. He later reported chronic right thigh pain present for over one month, which was unchanged from baseline and already being addressed in the outpatient setting with planned MRI and physical therapy. Patient continued to be able to ambulate throughout room as per his baseline. At time of discharge patient was asymptomatic. Patient discharged home in a stable condition. He is to follow up with his PCP as scheduled on May 05 and continue PT. Status at Discharge Functional status at discharge: independent ambulation Time Spent with Patient Time attestation: Total time spent providing and/or coordinating discharge services: Time spent: Greater than 30 minutes Exam Narrative: AF HR 90 RR 18 SPO2 97 BP 119/75 General: male in no acute respiratory distress who is nontoxic appearing, lying semi recumbent in bed. HEENT: Extraocular movement intact. Sclera clear and anicteric. No facial asymmetry. Chest: Lungs are clear to auscultation bilaterally. No wheezes or crackles. CV: Heart was regular rate and rhythm. Abd: Abdomen was soft. Nontender. Nondistended. Positive bowel sounds. Ext: No clubbing, cyanosis, or edema. DP pulses bilaterally. Neuro: Patient is alert. Speech is clear. DS: Data Data Completed and Pending Completed studies during hospitalization: abdomen/pelvis ct hip xr Labs on day of discharge: Labs from last 24 hours 04/23/25 20:43 POC Capillary Glucose 119 H Discharge Plan Discharge Attending physician on discharge: Lola Hager Consulting providers: Torie Cai Discharging Clinician: Torie Cai Anticipated Discharge Date/Time: 04/24/25 12:24 Patient Disposition: Home Activity: as tolerated Diet: as tolerated and diabetic Discharge Instructions: Discharge disposition: Diagnosed with urinary tract infection with pyelonephritis (kidney infection) Take all medications as prescribed even if feeling better Augmentin twice a day, course to be completed on 04/28 Attached is information on this medication Eat well balanced meals and stay hydrated Keep active to remain strong Avoid use of diapers or pads Good mauricio Care every 2 hours Trend urine output Take caution while standing, rising, or moving Change positions slowly taking a break between each position change If you standing feel dizzy sit back down and take a break Encouraged to continue with yearly vaccinations Return to the emergency department if he developed sudden shortness of breath, chest pain, nausea, vomiting, upset stomach or intractable diarrhea Return to the emergency department if you develop fever greater than 100.5 Follow-up with the primary care physician within 1-2 weeks Thank you for [facility] for your healthcare needs Patient Instructions: Antibiotic Form, Amoxicillin/Clavulanate Potassium (By mouth), Urinary Tract Infection in Men (DC), Kidney Infection (DC) Patient Language: [place] Stand Alone Forms: General Discharge Information Follow-up/Referrals: PHYSICIAN,CORPORATE REAL ESTATE MANAGER [Primary Care Provider, Internal Medicine] - 1 Week Discharge Medications: New amoxicillin-pot clavulanate 875-125 mg tablet 1 tablet PO Q12H Qty: 8 0RF Continued metformin 500 mg tablet 500 mg PO BID atorvastatin 20 mg tablet 20 mg PO DAILY cetirizine 10 mg tablet 10 mg PO DAILY meloxicam 15 mg tablet 7.5 mg PO BID allopurinol 100 mg tablet 100 mg PO DAILY albuterol sulfate 90 mcg/actuation HFA aerosol inhaler 1 inh INHALATION DAILY rosuvastatin 10 mg tablet 10 mg PO DAILY duloxetine 60 mg capsule,delayed release(DR/EC) 60 mg PO DAILY Biktarvy 50-200-25 mg tablet 1 tablet PO DAILY gabapentin 300 mg capsule 300 mg PO HS Date of admission: 04/21/25 13:28 Primary Care Provider: PHYSICIAN,CORPORATE REAL ESTATE MANAGER Admitting Provider: Devendra Norwood Attending physician on admission: Devendra Norwood Condition: Stable Hospitalist MIPS Heart Failure (Exclusion) Patient has history of Heart Transplant or Left Ventricular Assistive Device?: No IF YES, STOP HERE Heart Failure (Qualifier) Patient has current or prior documentation of LVEF less than or equal to 40%, or mod/servere depressed LVSF?: No IF NO, STOP HERE
== END 2025-04-24 13:08 | disposition home or self-care (01) ==
LOC: ANHED 12:23 → ANH3MED 04-23 06:52
PROVIDERS: Emergency Medicine; Admitting Provider Internal Medicine; Emergency Provider Physician Assistant; Visit Provider General Practice
DX: A41.9 Sepsis, unspecified organism (principal); N10 Acute pyelonephritis; N30.00 Acute cystitis without hematuria; F17.210 Nicotine dependence, cigarettes, uncomplicated; E11.9 Type 2 diabetes mellitus without complications
CPT/HCPCS: 36415; 73502; 74177; 80053; 81001; 82948; 83605; 83690; 83735; 85025; 87086; 87186; 94640; 96361; 96365; 96367; 96372; 96374; 96375; 96376; 99285; A9270; G0378; J0696; J1171; J1650; J2405; J3475; J7030; Q9967